=== PATIENT | male | born 1930 | race Caucasian/White ===

== ENCOUNTER → 2017-01-15 | Outpatient (CLI) | payer MEDICARE, OTHER ==
[~2017-01-15] MED LIST: ALAVERT10 M1 PO; AMLODIPINE10 MG; ASPIRIN81 M1; BENICAR40 MG; CHERATUSSIN DA480 ML; CLARITIN10 MG PO; COREG12.5 MG PO; FLONASE ALLERG9.9 ML NAS; HORIZANT300 M1 PO; HYDROCHLOROTHIA25 MG; HYDROCODONE BIT1 T11 PO; KEFLEX500 MG PO; KLORVESS,K40 MEQ/30 PO; LASIX80 MG PO; LEXAPRO20 MG PO; LISINOPRIL40 MG; LYRICA75 M1 PO; PLAVIX75 MG; RESTASIS0.05% OP; RESTORIL15 MG PO; ROBITUSSIN AC 110 ML PO; SIMVASTATIN40 MG; ULTRAM50 MG PO; VITAMIN D32000 I1 PO; ZOCOR20 MG PO; ZOLPIDEM TARTRAT5 MG; ZYLOPRIM100 MG PO
[2017-01-15 09:47] LABS: BASO % 0.3 % (0.0-1.0); EOS # 0.1 10*3/uL (0.0-0.4); EOS % 1.4 % (1.0-4.0); HEMATOCRIT 30.6 % (42.0-52.0); HEMOGLOBIN 9.6 g/dl (14.0-18.0); IG # 0.1 10*3/uL (0.0-0.1); LYMPH # 2.5 10*3/uL (1.3-4.4); LYMPH % 38.3 % (27.0-41.0); MEAN CELL VOLUME 98.4 fl (80.0-94.0); MEAN CORPUSCULAR HGB 30.9 pg (27.0-31.0); MEAN CORPUSCULAR HGB CONC 31.4 g/dl (33.0-37.0); MEAN PLATELET VOLUME 10.9 fl (9.6-12.3); MONO # 0.4 10*3/uL (0.1-1.0); MONO % 5.5 % (3.0-9.0); NEUT # 3.4 10*3/uL (2.3-7.9); NEUT % 53.6 % (47.0-73.0); PLATELET COUNT AUTOMATED 63 10*3/uL (130-400); RED BLOOD COUNT 3.11 10*6/uL (4.50-5.90); RED CELL DISTRI WIDTH 19.6 % (0-14.5); WHITE BLOOD COUNT 6.4 10*3/uL (4.8-10.8)
[2017-01-15 10:20] LABS: ALBUMIN 3.8 gm/dl (3.1-4.5); BILIRUBIN, TOTAL 0.7 mg/dl (0.2-1.0); POTASSIUM 4.7 mmol/L (3.5-5.1); TOTAL PROTEIN 6.2 gm/dL (6.4-8.2)
[2017-01-15 10:26] LABS: VITAMIN D, 25-HYDROXY 33.9 ng/mL (30-100)
[2017-01-15 10:27] LABS: FOLIC ACID 22.65 ng/mL (>5.38); THYROID STIM HORMONE (HS) 2.34 uIU/ml (0.358-4.75)
== END | disposition home or self-care (01) ==
LOC: LAB 09:27
PROVIDERS: Internal Medicine
DX: G57.93 Unspecified mononeuropathy of bilateral lower limbs (principal); E55.9 Vitamin D deficiency, unspecified; E78.2 Mixed hyperlipidemia

== ENCOUNTER → 2017-05-24 | Outpatient (CLI) | payer MEDICARE, OTHER ==
[2017-05-24 11:55] LABS: BASO % 0.1 % (0.0-1.0); EOS # 0.1 10*3/uL (0.0-0.4); EOS % 1.1 % (1.0-4.0); HEMATOCRIT 30.8 % (42.0-52.0); HEMOGLOBIN 10.3 g/dl (14.0-18.0); IG # 0.1 10*3/uL (0.0-0.1); LYMPH # 3.4 10*3/uL (1.3-4.4); LYMPH % 40.7 % (27.0-41.0); MEAN CELL VOLUME 97.8 fl (80.0-94.0); MEAN CORPUSCULAR HGB 32.7 pg (27.0-31.0); MEAN CORPUSCULAR HGB CONC 33.4 g/dl (33.0-37.0); MEAN PLATELET VOLUME 10.8 fl (9.6-12.3); MONO # 0.4 10*3/uL (0.1-1.0); MONO % 5.2 % (3.0-9.0); NEUT # 4.3 10*3/uL (2.3-7.9); NEUT % 52.1 % (47.0-73.0); PLATELET COUNT AUTOMATED 80 10*3/uL (130-400); RED BLOOD COUNT 3.15 10*6/uL (4.50-5.90); RED CELL DISTRI WIDTH 19.2 % (0-14.5); WHITE BLOOD COUNT 8.3 10*3/uL (4.8-10.8)
== END | disposition home or self-care (01) ==
LOC: LAB 11:33
PROVIDERS: Internal Medicine Hematology & Oncology
DX: C91.10 Chronic lymphocytic leukemia of B-cell type not having achieved remission (principal); R97.20 Elevated prostate specific antigen [PSA]

== ENCOUNTER → 2017-06-04 | Outpatient (CLI) | payer MEDICARE, OTHER ==
[2017-06-06 16:09] LABS: IMMUNOFIXATION RESULT, SERUM Comment: (.)
== END | disposition home or self-care (01) ==
LOC: LAB 13:07
PROVIDERS: Psychiatry & Neurology Neurology
DX: G60.9 Hereditary and idiopathic neuropathy, unspecified (principal); I10 Essential (primary) hypertension

== ENCOUNTER → 2017-08-08 | Outpatient (CLI) | payer MEDICARE, OTHER ==
[2017-08-08 09:57] LABS: BASO % 0.2 % (0.0-1.0); EOS # 0.1 10*3/uL (0.0-0.4); EOS % 0.9 % (1.0-4.0); HEMATOCRIT 30.9 % (42.0-52.0); LYMPH # 3.6 10*3/uL (1.3-4.4); LYMPH % 41.5 % (27.0-41.0); MEAN CORPUSCULAR HGB 32.4 pg (27.0-31.0); MEAN CORPUSCULAR HGB CONC 32.4 g/dl (33.0-37.0); MEAN PLATELET VOLUME 9.6 fl (9.6-12.3); MONO # 0.6 10*3/uL (0.1-1.0); MONO % 6.7 % (3.0-9.0); NEUT # 4.3 10*3/uL (2.3-7.9); NEUT % 49.5 % (47.0-73.0); NUCLEATED RED BLOOD CELL 0.2 % (0.0-0.0); PLATELET COUNT AUTOMATED 77 10*3/uL (130-400); RED BLOOD COUNT 3.09 10*6/uL (4.50-5.90); RED CELL DISTRI WIDTH 19.7 % (0-14.5); WHITE BLOOD COUNT 8.7 10*3/uL (4.8-10.8)
[2017-08-08 10:12] LABS: ACT PARTIAL THROMBO TIME 25.1 SECONDS (20.8-31.5); INTERNATIONAL NORM RATIO 1.1 (2.0-3.5)
[2017-08-08 10:17] LABS: ALBUMIN 4.1 gm/dl (3.1-4.5); CREATININE 1.62 mg/dL (0.70-1.30); POTASSIUM 4.7 mmol/L (3.5-5.1); TOTAL PROTEIN 6.9 gm/dL (6.4-8.2)
== END | disposition home or self-care (01) ==
LOC: LAB 09:31
PROVIDERS: Surgery Vascular Surgery
DX: Z51.81 Encounter for therapeutic drug level monitoring (principal); I73.9 Peripheral vascular disease, unspecified

== ENCOUNTER → 2017-08-17 | Outpatient (CLI) | payer MEDICARE, OTHER | END | disposition home or self-care (01) | LOC: RAD 11:29 | DX: Z01.818 Encounter for other preprocedural examination (principal); I51.7 Cardiomegaly; J44.9 Chronic obstructive pulmonary disease, unspecified; I73.9 Peripheral vascular disease, unspecified; Z95.2 Presence of prosthetic heart valve ==

== ENCOUNTER 2017-09-14 18:40 | Inpatient (IN) | payer MEDICARE, OTHER ==
[~2017-09-14] VITALS: Ht 175.2 cm; Wt 88.2 kg
[~2017-09-14 18:40] MED LIST changes: -ASPIRIN81 M1; +ASPIRIN81 M1 PO; +PLAVIX75 M1 PO; -PLAVIX75 MG
[2017-09-14 18:46] VITALS: BP 169/38
[2017-09-14 19:36] LABS: BASO % 0.1 % (0.0-1.0); EOS # 0.1 10*3/uL (0.0-0.4); EOS % 0.6 % (1.0-4.0); HEMATOCRIT 28.8 % (42.0-52.0); HEMOGLOBIN 9.1 g/dl (14.0-18.0); LYMPH # 3.6 10*3/uL (1.3-4.4); LYMPH % 35.5 % (27.0-41.0); MEAN CELL VOLUME 99.7 fl (80.0-94.0); MEAN CORPUSCULAR HGB 31.5 pg (27.0-31.0); MEAN CORPUSCULAR HGB CONC 31.6 g/dl (33.0-37.0); MEAN PLATELET VOLUME 10.5 fl (9.6-12.3); MONO # 0.4 10*3/uL (0.1-1.0); MONO % 4.2 % (3.0-9.0); NEUT % 59.2 % (47.0-73.0); PLATELET COUNT AUTOMATED 75 10*3/uL (130-400); RED BLOOD COUNT 2.89 10*6/uL (4.50-5.90); RED CELL DISTRI WIDTH 21.6 % (0-14.5)
[2017-09-14 19:52] LABS: ALBUMIN 3.4 gm/dl (3.1-4.5); CREATININE 1.97 mg/dL (0.70-1.30); POTASSIUM 5.3 mmol/L (3.5-5.1); TOTAL PROTEIN 6.5 gm/dL (6.4-8.2)
[2017-09-14 20:00] VITALS: BP 125/55
[2017-09-14 22:21] VITALS: BP 127/61
[2017-09-14] MEDS ORDERED: VITAMIN D31000 UNI1 PO (22:57)
[2017-09-14] MEDS ORDERED: DIOVAN320 MG PO (22:59)
[2017-09-14] MEDS ORDERED: MULTIVITAMINS1 EAC5 PO (22:59)
[2017-09-14] MEDS ORDERED: VITAMIN C500 M1 PO (23:02)
[2017-09-14] MEDS ORDERED: PERCOCET 5-3251 EACH PO (23:03)
[2017-09-14] MEDS ORDERED: IRON325 M1 PO (23:06)
[2017-09-14] MEDS ORDERED: MIRALAX119 GM PO (23:07)
[2017-09-14] MEDS ORDERED: K-TAB20 MEQ PO (23:10)
[2017-09-14] MEDS ORDERED: TYLENOL EXTRA500 MG PO (23:12)
[2017-09-15 06:29] LABS: BASO % 0.2 % (0.0-1.0); EOS # 0.1 10*3/uL (0.0-0.4); EOS % 1.1 % (1.0-4.0); HEMATOCRIT 24.9 % (42.0-52.0); HEMOGLOBIN 7.9 g/dl (14.0-18.0); LYMPH # 2.2 10*3/uL (1.3-4.4); LYMPH % 34.9 % (27.0-41.0); MEAN CORPUSCULAR HGB 31.7 pg (27.0-31.0); MEAN CORPUSCULAR HGB CONC 31.7 g/dl (33.0-37.0); MEAN PLATELET VOLUME 11.5 fl (9.6-12.3); MONO # 0.4 10*3/uL (0.1-1.0); NEUT # 3.6 10*3/uL (2.3-7.9); NEUT % 56.9 % (47.0-73.0); PLATELET COUNT AUTOMATED 64 10*3/uL (130-400); RED BLOOD COUNT 2.49 10*6/uL (4.50-5.90); RED CELL DISTRI WIDTH 21.7 % (0-14.5); WHITE BLOOD COUNT 6.4 10*3/uL (4.8-10.8)
[2017-09-15 06:40] LABS: ALBUMIN 2.9 gm/dl (3.1-4.5); CREATININE 1.42 mg/dL (0.70-1.30); FREE T4 1.2 ng/dl (0.76-1.46); TOTAL PROTEIN 5.6 gm/dL (6.4-8.2)
[2017-09-15 06:45] LABS: THYROID STIM HORMONE (HS) 1.7 uIU/ml (0.358-4.75)
[2017-09-15 06:47] LABS: ACT PARTIAL THROMBO TIME 27.5 SECONDS (20.8-31.5); INTERNATIONAL NORM RATIO 1.1 (2.0-3.5)
[2017-09-15 06:55] LABS: POTASSIUM 4.3 mmol/L (3.5-5.1)
[2017-09-15 07:39] LABS: VITAMIN D, 25-HYDROXY 28.5 ng/mL (30-100)
[2017-09-15 08:00] VITALS: BP 104/65
[2017-09-15 12:00] VITALS: BP 110/65
[2017-09-15 16:00] VITALS: BP 118/50
[2017-09-15 20:00] VITALS: BP 110/56
[2017-09-16] VITALS: BP 105/52
[2017-09-16 06:32] LABS: BASO % 0.2 % (0.0-1.0); CREATININE 1.37 mg/dL (0.70-1.30); EOS # 0.1 10*3/uL (0.0-0.4); HEMATOCRIT 27.6 % (42.0-52.0); HEMOGLOBIN 8.6 g/dl (14.0-18.0); LYMPH % 36.8 % (27.0-41.0); MEAN CELL VOLUME 100.4 fl (80.0-94.0); MEAN CORPUSCULAR HGB 31.3 pg (27.0-31.0); MEAN CORPUSCULAR HGB CONC 31.2 g/dl (33.0-37.0); MEAN PLATELET VOLUME 12.5 fl (9.6-12.3); MONO # 0.3 10*3/uL (0.1-1.0); MONO % 4.1 % (3.0-9.0); NEUT # 4.6 10*3/uL (2.3-7.9); NEUT % 57.4 % (47.0-73.0); PLATELET COUNT AUTOMATED 78 10*3/uL (130-400); POTASSIUM 4.3 mmol/L (3.5-5.1); RED BLOOD COUNT 2.75 10*6/uL (4.50-5.90); RED CELL DISTRI WIDTH 21.5 % (0-14.5)
[2017-09-16 08:00] VITALS: BP 137/53
[2017-09-16 12:00] VITALS: BP 113/47
[2017-09-16 16:00] VITALS: BP 112/61
[2017-09-17] VITALS: BP 109/49
[2017-09-17 06:18] LABS: BASO % 0.2 % (0.0-1.0); EOS # 0.1 10*3/uL (0.0-0.4); EOS % 1.7 % (1.0-4.0); HEMATOCRIT 24.8 % (42.0-52.0); HEMOGLOBIN 7.9 g/dl (14.0-18.0); LYMPH # 2.1 10*3/uL (1.3-4.4); MEAN CORPUSCULAR HGB 31.2 pg (27.0-31.0); MEAN CORPUSCULAR HGB CONC 31.9 g/dl (33.0-37.0); MEAN PLATELET VOLUME 10.9 fl (9.6-12.3); MONO # 0.4 10*3/uL (0.1-1.0); MONO % 6.2 % (3.0-9.0); NEUT # 3.3 10*3/uL (2.3-7.9); NEUT % 55.9 % (47.0-73.0); PLATELET COUNT AUTOMATED 68 10*3/uL (130-400); RED BLOOD COUNT 2.53 10*6/uL (4.50-5.90); RED CELL DISTRI WIDTH 21.2 % (0-14.5); WHITE BLOOD COUNT 5.9 10*3/uL (4.8-10.8)
[2017-09-17 06:47] LABS: BUN 22 mg/dl (7-24); CHLORIDE 114 mmol/L (98-107); CREATININE 1.18 mg/dL (0.70-1.30); PHOSPHOROUS 2.2 mg/dL (2.5-4.9); POTASSIUM 3.9 mmol/L (3.5-5.1); SODIUM 143 mmol/L (136-145)
[2017-09-17 08:00] VITALS: BP 127/48
[2017-09-17 12:00] VITALS: BP 112/51
[2017-09-17] MEDS ORDERED: SEPTDS PO (12:46)
[2017-09-17] MEDS ORDERED: PERCOCET 5-3251 EACH PO (12:46)
== END 2017-09-17 14:46 | disposition other institution (70) | DRG 862 ==
LOC: ED 18:40 → 4E 21:36 → EDHOLD 21:36 → 4E 21:49
PROVIDERS: Hospitalist; Internal Medicine Nephrology; Nurse Practitioner Family; Student in an Organized Health Care Education/Training Program; ADMIT Internal Medicine
DX: T81.4XXA Infection following a procedure, initial encounter (principal); N17.0 Acute kidney failure with tubular necrosis; E44.0 Moderate protein-calorie malnutrition; D69.6 Thrombocytopenia, unspecified; C95.90 Leukemia, unspecified not having achieved remission; L03.115 Cellulitis of right lower limb; E11.65 Type 2 diabetes mellitus with hyperglycemia; B95.8 Unspecified staphylococcus as the cause of diseases classified elsewhere; L76.34 Postprocedural seroma of skin and subcutaneous tissue following other procedure; D53.9 Nutritional anemia, unspecified; E87.5 Hyperkalemia; B96.4 Proteus (mirabilis) (morganii) as the cause of diseases classified elsewhere; E11.69 Type 2 diabetes mellitus with other specified complication; E78.5 Hyperlipidemia, unspecified; E66.9 Obesity, unspecified; E55.9 Vitamin D deficiency, unspecified; I10 Essential (primary) hypertension; Z96.641 Presence of right artificial hip joint; E87.8 Other disorders of electrolyte and fluid balance, not elsewhere classified; Y83.8 Other surgical procedures as the cause of abnormal reaction of the patient, or of later complication, without mention of misadventure at the time of the procedure; Z95.2 Presence of prosthetic heart valve; Z68.28 Body mass index [BMI] 28.0-28.9, adult; Z95.1 Presence of aortocoronary bypass graft; Y92.89 Other specified places as the place of occurrence of the external cause; Z95.0 Presence of cardiac pacemaker; Z85.46 Personal history of malignant neoplasm of prostate; Z79.02 Long term (current) use of antithrombotics/antiplatelets; Z79.51 Long term (current) use of inhaled steroids; Z79.82 Long term (current) use of aspirin; Z79.899 Other long term (current) drug therapy; Z82.49 Family history of ischemic heart disease and other diseases of the circulatory system

== ENCOUNTER 2017-09-21 22:37 | Emergency (ER) | payer MEDICARE, OTHER ==
[~2017-09-21] VITALS: Ht 182.8 cm; Wt 90.7 kg
[~2017-09-21 22:37] MED LIST changes: +DIOVAN320 MG PO; +IRON325 M1 PO; +K-TAB20 MEQ PO; +MIRALAX119 GM PO; +MULTIVITAMINS1 EAC5 PO; +PERCOCET 5-3251 EACH PO; +SEPTDS PO; +TYLENOL EXTRA500 MG PO; +VITAMIN C500 M1 PO; +VITAMIN D31000 UNI1 PO
[2017-09-21 23:56] LABS: ACT PARTIAL THROMBO TIME 23.5 SECONDS (20.8-31.5); INTERNATIONAL NORM RATIO 1.1 (2.0-3.5)
[2017-09-22] LABS: ALBUMIN 3.4 gm/dl (3.1-4.5); ALKALINE PHOSPHATASE 96 U/L (45-117); BUN 31 mg/dl (7-24); CHLORIDE 112 mmol/L (98-107); CREATININE 1.77 mg/dL (0.70-1.30); LIPASE 223 U/L (73-393); POTASSIUM 5.4 mmol/L (3.5-5.1); SGOT/AST 16 IU/L (3-35); SGPT/ALT 22 U/L (12-78); SODIUM 140 mmol/L (136-145)
[2017-09-22 00:01] LABS: BASO % 0.2 % (0.0-1.0); EOS # 0.1 10*3/uL (0.0-0.4); EOS % 1.1 % (1.0-4.0); HEMATOCRIT 27.3 % (42.0-52.0); HEMOGLOBIN 8.8 g/dl (14.0-18.0); LYMPH # 4.4 10*3/uL (1.3-4.4); LYMPH % 40.6 % (27.0-41.0); MEAN CELL VOLUME 98.6 fl (80.0-94.0); MEAN CORPUSCULAR HGB 31.8 pg (27.0-31.0); MEAN CORPUSCULAR HGB CONC 32.2 g/dl (33.0-37.0); MEAN PLATELET VOLUME 11.7 fl (9.6-12.3); MONO # 0.4 10*3/uL (0.1-1.0); NEUT # 5.7 10*3/uL (2.3-7.9); NEUT % 52.9 % (47.0-73.0); PLATELET COUNT AUTOMATED 120 10*3/uL (130-400); RED BLOOD COUNT 2.77 10*6/uL (4.50-5.90); RED CELL DISTRI WIDTH 22.3 % (0-14.5); WHITE BLOOD COUNT 10.7 10*3/uL (4.8-10.8)
[2017-09-22 00:03] LABS: TROPONIN I < 0.015 ng/ml (<0.045)
[2017-09-22 00:23] LABS: BILIRUBIN NEGATIVE (NEGATIVE); BLOOD NEGATIVE (NEGATIVE); CLARITY CLEAR (CLEAR); COLOR YELLOW (YELLOW); GLUCOSE NEGATIVE (NEGATIVE); KETONE NEGATIVE (NEGATIVE); LEUKO ESTERASE NEGATIVE (NEGATIVE); NITRITE NEGATIVE (NEGATIVE); SPECIFIC GRAVITY 1.025 (1.005-1.030); UROBILINOGEN 0.2 E.U./dl (0.2-1.0)
[2017-09-22 00:49] LABS: URIC ACID CRYSTALS 2+
[2017-09-22 00:50] LABS: WBC 0-2 wbc/hpf (0-5)
[2017-09-22 12:04] VITALS: BP 144/56
== END 2017-09-22 12:30 | disposition home or self-care (01) ==
LOC: ED 22:37
PROVIDERS: Emergency Medicine Emergency Medical Services
DX: L03.115 Cellulitis of right lower limb (principal); R60.0 Localized edema; E78.5 Hyperlipidemia, unspecified; E11.65 Type 2 diabetes mellitus with hyperglycemia; I10 Essential (primary) hypertension; Z96.641 Presence of right artificial hip joint; Z95.1 Presence of aortocoronary bypass graft; Z98.890 Other specified postprocedural states; Z79.82 Long term (current) use of aspirin; Z79.899 Other long term (current) drug therapy; Z95.0 Presence of cardiac pacemaker

== ENCOUNTER → 2017-11-19 | Outpatient (CLI) | payer MEDICARE, OTHER ==
[2017-11-19 10:36] LABS: BASO % 0.3 % (0.0-1.0); EOS # 0.1 10*3/uL (0.0-0.4); EOS % 0.8 % (1.0-4.0); HEMATOCRIT 30.3 % (42.0-52.0); HEMOGLOBIN 9.8 g/dl (14.0-18.0); LYMPH # 2.3 10*3/uL (1.3-4.4); LYMPH % 37.6 % (27.0-41.0); MEAN CELL VOLUME 98.7 fl (80.0-94.0); MEAN CORPUSCULAR HGB 31.9 pg (27.0-31.0); MEAN CORPUSCULAR HGB CONC 32.3 g/dl (33.0-37.0); MEAN PLATELET VOLUME 10.4 fl (9.6-12.3); MONO # 0.3 10*3/uL (0.1-1.0); MONO % 5.2 % (3.0-9.0); NEUT # 3.4 10*3/uL (2.3-7.9); PLATELET COUNT AUTOMATED 75 10*3/uL (130-400); RED BLOOD COUNT 3.07 10*6/uL (4.50-5.90); RED CELL DISTRI WIDTH 19.6 % (0-14.5); WHITE BLOOD COUNT 6.1 10*3/uL (4.8-10.8)
== END | disposition home or self-care (01) ==
LOC: LAB 10:18
PROVIDERS: Internal Medicine Hematology & Oncology
DX: C91.10 Chronic lymphocytic leukemia of B-cell type not having achieved remission (principal); R97.20 Elevated prostate specific antigen [PSA]

== ENCOUNTER → 2017-12-05 | Outpatient (CLI) | payer MEDICARE, OTHER ==
[2017-12-05 11:13] LABS: CREATININE 1.45 mg/dL (0.70-1.30); POTASSIUM 4.7 mmol/L (3.5-5.1)
== END | disposition home or self-care (01) ==
LOC: LAB 10:37
PROVIDERS: Urology
DX: C61 Malignant neoplasm of prostate (principal)

== ENCOUNTER 2018-01-31 21:45 | Inpatient (IN) | payer MEDICARE, OTHER ==
[~2018-01-31] VITALS: Ht 175.3 cm; Wt 77.1 kg
--- NOTE | ~2018-01-31 | CON ---
[place], [place] REPORT OF CONSULTATION NAME: LALITA MARI UNIT #: [id number] ROOM: [facility] DOCTOR: BARBARA FLORES,SOUMYA BIRTHDATE: [birth year] DOS: 02/02/2018 REASON FOR CONSULTATION: Chest pain. CLINICAL HISTORY: The patient is an 87-year-old gentleman with history of coronary artery disease, valvular heart disease, chronic kidney disease, peripheral vascular disease, pacemaker and hypertension who presented to the Emergency Room with intermittent chest pain for the past couple of weeks. He described this pain as midsternal pain, easily comes with exertion and relieved with rest. This pain is in the midsternal area. No radiation. The patient has associated shortness of breath and nausea, but no diaphoresis. The pain lasts for a few minutes and relieves with the rest. He had history of previous bypass surgery, aortic valve replacement, pacemaker insertion, hypertension, chronic lymphocytic leukemia as well as chronic anemia. He was admitted to the hospital and the Cardiology consulted for his intermittent chest pains. At the time of my examination, the patient denied any chest pain or shortness of breath. No PND, no orthopnea. No nausea, vomiting or diarrhea. No headaches, no dizziness. No fever or chills. No genitourinary symptoms. No musculoskeletal symptoms. He is anticipating upper endoscopy tomorrow. REVIEW OF SYSTEMS: Ten systems negative except as mentioned above. PAST MEDICAL HISTORY: 1. Valvular heart disease, status post bioprosthetic aortic valve replacement around 2007, details unknown. 2. Coronary artery disease, status post single vessel bypass around 2007 along with bypass surgery. 3. Pacemaker insertion around 2010. 4. Peripheral vascular disease, status post right leg surgery in 2016, details unknown. 5. Chronic lymphocytic leukemia. 6. Hypertension. 7. Chronic kidney disease. 8. Diabetes type 2. 9. History of prostate cancer. PAST SURGICAL HISTORY: 1. History of bypass surgery. 2. History of aortic valve replacement. 3. History of right leg bypass. 4. History of hip replacement. SOCIAL HISTORY: The patient does not smoke or drink. FAMILY HISTORY: Father . Mother . ALLERGIES: No known drug allergies. HOME MEDICATIONS: Reviewed. [place], [place] REPORT OF CONSULTATION NAME: KAMALJITLALITA Armenta UNIT #: [id number] ROOM: [facility] DOCTOR: BARBARA FLORES,SOUMYA BIRTHDATE: [birth year] PHYSICAL EXAMINATION: VITAL SIGNS: Blood pressure 110/82, pulse 74, respiration 18, weight 77 kilos and BMI 25.1. GENERAL: Alert, comfortable, in no acute distress. HEENT: Pupils are round and equal. No jaundice. NECK: Supple, no distended neck veins, no carotid bruit. CHEST: Symmetrical, nontender. LUNGS: Few scattered rhonchi, but good air entry bilaterally. HEART: Regular rate and rhythm, no S3, grade 1/6 systolic murmur. No palpable thrills. ABDOMEN: Benign, nontender. Bowel sounds normal. EXTREMITIES: Showed no edema. Distal pulses are palpable. SKIN: Warm and dry. No cyanosis, no clubbing. NEUROLOGIC: The patient is alert, oriented. No focal neurologic deficit. RECTAL: Deferred. REVIEW OF THE DIAGNOSTIC TESTS: EKG, labs and imaging studies reviewed. EKG shows a normal sinus rhythm with inferolateral ST-T changes. CK-MB, troponins are negative. Magnesium 2.4, potassium 4.5, BUN 69 and creatinine 1.34. Hemoglobin 9.0, platelets 68,000. Echo from October 2016 showed an EF 55-60%, stage II diastolic dysfunction and mean aortic valve gradient 7 mmHg. Stress test on August 2016 noted. IMPRESSIONS: 1. Intermittent chest pains, myocardial infarction ruled out. 2. Severe anemia, status post transfusion of packed red blood cells in the past. The patient is anticipating the endoscopy tomorrow. 3. Coronary artery disease, status post single vessel bypass about 10 years ago. 4. Status post bioprosthetic aortic valve replacement about 10 years ago. 5. Status post pacemaker insertion around 2010. 6. Peripheral vascular disease, status post right leg bypass in 2017. 7. Chronic kidney disease. 8. Hypertension. 9. Diabetes type 2. 10. Thrombocytopenia. RECOMMENDATIONS: Continue with current cardiac medications including beta desiree, ARBs and statins. His aspirin and Plavix are on hold. Based on his upper endoscopy, I will consider Lexiscan stress test prior to discharge. Keep his hemoglobin greater than 8.5. His chest pain ____ appears to be due to his severe anemia and currently asymptomatic. The above treatment and plan discussed with the patient and his who are at bedside and all their questions answered. [place], [place] REPORT OF CONSULTATION NAME: LALITA MARI UNIT #: [id number] ROOM: [facility] DOCTOR: SOUMYA JIMENEZ MD BIRTHDATE: [birth year] SOUMYA JIMENEZ MD CM:CONSTR:REPORT OF CONSULTATION 2243 02/03/18 0242 interface
--- NOTE | ~2018-01-31 | O ---
[place], [place] OPERATIVE NOTE NAME: LALITA MARI UNIT #: [id number] ROOM: [facility] DOCTOR: MANDY CABEZAS MD BIRTHDATE: [birth year] DOS: 02/03/2018 GASTROENDOSCOPIC REPORT HISTORY OF PRESENT ILLNESS: This gentleman has presented with profound anemia, hemoglobin of 6, hematocrit 20, status post multi transfusion, thrombocytopenia. In addition, on aspirin and Plavix for black tarry stool, status post multi packed cell transfusion, status post platelet transfusion. PROCEDURE: Today's procedure part of investigation is panendoscopy. PREMEDICATION: Propofol. SCOPE: Olympus forward-viewing gastroscope Q10 video. REPORT: After putting the patient in left lateral position and application of lubricant to the scope, the scope was introduced. Thereafter, under direct visualization, advanced through the length of esophagus without difficulty. Gastric pouch was entered. Multi antral erosions were identified. Duodenal bulb, second and third part free of ulcers. Photographic series obtained. Biopsy from margin of one of the erosions was obtained for documentation and H. pylori. The patient extubated and tolerated the procedure well. IMPRESSION: Multi antral erosions, gastritis. This patient has been on aspirin. The culprit most likely is the aspirin for induction of gastric erosions and gastritis and black tarry stool. PLAN AND DISCUSSION: We are going to withhold aspirin. We are going to proceed with Plavix from tomorrow and the patient with aortic valvular disease and prosthesis as well as peripheral vascular disease in need of anticoagulation. On the other hand, GI bleed and chronic lymphocytic leukemia and coronary artery disease, all has been recognized. We are going to treat the patient with Protonix and we are going to also, while he is in hospital, keeping him on Carafate 1 gram before meals and at bedtime while in hospital and follow up on H and H and supportive management. [place], [place] OPERATIVE NOTE NAME: LALITA MARI UNIT #: [id number] ROOM: [facility] DOCTOR: MANDY CABEZAS MD BIRTHDATE: [birth year] MANDY CABEZAS MD CM:OPRECORD:OPERATIVE NOTE 49 32 MANDY CABEZAS MD 02/03/182031 interface
--- NOTE | ~2018-01-31 | CON ---
[place], [place] REPORT OF CONSULTATION NAME: LALITA MARI UNIT #: [id number] ROOM: [facility] DOCTOR: NATALI CABEZAS MDAUSTINJEISON BIRTHDATE: [birth year] DOS: 02/03/2018 GASTROENDOSCOPIC REPORT HISTORY OF PRESENT ILLNESS: The patient has been presented and placed in ICU for black tarry stool. This gentleman is 87-year-old patient. He has been taken care of over the past 3 days with concerns about profound anemia with hemoglobin of 6 and hematocrit of 19, and black tarry stool with thrombocytopenia and I have been asked for assessment of the patient's source of GI bleed. His glucose was 250. BUN and creatinine 87 and 1.8. GFR of 42. INR 1.0. CBC differential was addressed. Troponin was within normal limits. Arterial blood gases, pH 7.37 with pO2 of 95 and pCO2 of 29. H and H confirmed to be 6 and 20, multiple transfusions undertaken. The patient is stabilized. The patient has been on Plavix and aspirin. His recent platelets were 57, one unit of platelets has been transfused. PAST MEDICAL HISTORY: Otherwise renal failure, cellulitis of knee and right leg, diabetes mellitus, cardiac dysrhythmia, status post pacemaker, prostate CA, and thrombocytopenia. PAST SURGICAL HISTORY: Right hip prosthesis, aortic valve, and cardiac catheterization. SOCIAL HISTORY: Nonsmoker, nonalcohol consumer. FAMILY HISTORY: Noncontributory. ALLERGIES: Allergies to no known medication. REVIEW OF SYSTEMS: HEENT: Denies double vision, blurred vision. RESPIRATORY: Denies acute shortness of breath. CARDIOVASCULAR: Denies acute chest pain. DIGESTIVE SYSTEM: Black tarry stool and profound anemia. PHYSICAL EXAMINATION: VITAL SIGNS: Stable. HEENT: Within normal limit. NECK: Supple. No thyromegaly. CHEST: Symmetric anatomy, equal expansion. No wheeze, no rhonchi. HEART: Normal sinus rhythm. No gallop, no murmur. ABDOMEN: Soft. No hepato-organomegaly. Bowel sounds present. No pulsatile mass. EXTREMITIES: Cellulitis was noticed. Wrapped in pressure boots. NEUROLOGIC: Alert, oriented to time, place, person. Sensory and motor intact. Cranial nerves 2-12 intact. IMPRESSION: Profound anemia, gastrointestinal bleed, thrombocytopenia, black tarry stool, coronary artery disease, chronic lymphocytic leukemia, diabetes mellitus, prostate carcinoma, peripheral vascular disease, valvular heart [place], [place] REPORT OF CONSULTATION NAME: LALITA MARI UNIT #: [id number] ROOM: [facility] DOCTOR: JOCELYNN FLORES,MANDY BIRTHDATE: [birth year] disease, aortic prosthetic valve, and lower extremity fem-pop bypass on the right side. PLAN AND DISCUSSION: The patient has been on aspirin and Plavix. Platelets have been transfused. EGD today. OTHER ADJUNCTIVE DIAGNOSES: As outlined in paragraph of past medical and surgical history. MANDY CABEZAS MD CM:CONSTR:REPORT OF CONSULTATION 1736 02/04/18 0614 interface
[~2018-01-31 21:45] MED LIST changes: -AMLODIPINE10 MG; -COREG12.5 MG PO; +COREG6.25 MG PO; +DIOVAN160 M2 PO; -DIOVAN320 MG PO; +LASIX40 MG PO; -LASIX80 MG PO; +NORVASC2.5 MG PO; -VITAMIN D31000 UNI1 PO; +VITAMIN D32000 UNI1 PO
[2018-01-31 21:51] VITALS: BP 167/51
[2018-01-31 22:12] LABS: HEMATOCRIT 19.1 % (42.0-52.0); HEMOGLOBIN 6.4 g/dl (14.0-18.0); MEAN CELL VOLUME 102.7 fl (80.0-94.0); MEAN CORPUSCULAR HGB 34.4 pg (27.0-31.0); MEAN CORPUSCULAR HGB CONC 33.5 g/dl (33.0-37.0); MEAN PLATELET VOLUME 10.3 fl (9.6-12.3); NUCLEATED RED BLOOD CELL 0.2 10*3/uL (0.0-0.0); NUCLEATED RED BLOOD CELL 2.1 % (0.0-0.0); PLATELET COUNT AUTOMATED 96 10*3/uL (130-400); RED BLOOD COUNT 1.86 10*6/uL (4.50-5.90); RED CELL DISTRI WIDTH 22.2 % (0-14.5); WHITE BLOOD COUNT 10.5 10*3/uL (4.8-10.8)
[2018-01-31 22:22] VITALS: BP 136/33
[2018-01-31 22:29] LABS: ALBUMIN 3.8 gm/dl (3.1-4.5); ALKALINE PHOSPHATASE 70 U/L (45-117); BUN 87 mg/dl (7-24); CHLORIDE 112 mmol/L (98-107); CREATININE 1.85 mg/dL (0.70-1.30); POTASSIUM 4.8 mmol/L (3.5-5.1); SGOT/AST 20 IU/L (3-35); SGPT/ALT 24 U/L (12-78); SODIUM 141 mmol/L (136-145); TOTAL PROTEIN 5.8 gm/dL (6.4-8.2)
[2018-01-31 22:31] LABS: TROPONIN I < 0.015 ng/ml (<0.045)
[2018-01-31 22:41] LABS: PLATELET SUFFICIENCY LOW (NORMAL); TOTAL CELLS COUNTED 100 #CELLS
[2018-01-31 22:42] LABS: OVALOCYTES FEW; POLYCHROMASIA SLIGHT
[2018-01-31 23:37] VITALS: BP 137/48
[2018-02-01] VITALS (12 sets, daily range): BP systolic 101–171; BP diastolic 32–55
[2018-02-01 04:16] LABS: ABG HCO3 16.7 mmol/l (22-26); ABG O2 SATURATION 98.3 % (95-97); ARTERIAL BLOOD GAS PH 7.376 (7.35-7.45); ARTERIAL BLOOD GAS PO2 95.9 mmHg (80-90)
[2018-02-01 04:17] LABS: ABG BASE EXCESS -7.4 mmol/L (-2.0-2.0)
[2018-02-01 04:26] LABS: HEMATOCRIT 20.6 % (42.0-52.0); HEMATOCRIT 21.6 % (42.0-52.0); HEMOGLOBIN 6.8 g/dl (14.0-18.0); HEMOGLOBIN 6.9 g/dl (14.0-18.0); MEAN CORPUSCULAR HGB 31.9 pg (27.0-31.0); MEAN CORPUSCULAR HGB CONC 31.9 g/dl (33.0-37.0); MEAN PLATELET VOLUME 10.8 fl (9.6-12.3); NUCLEATED RED BLOOD CELL 0.2 10*3/uL (0.0-0.0); NUCLEATED RED BLOOD CELL 2.4 % (0.0-0.0); PLATELET COUNT AUTOMATED 83 10*3/uL (130-400); RED BLOOD COUNT 2.16 10*6/uL (4.50-5.90); RED CELL DISTRI WIDTH 21.7 % (0-14.5); WHITE BLOOD COUNT 7.1 10*3/uL (4.8-10.8)
[2018-02-01 04:34] LABS: ACT PARTIAL THROMBO TIME 19.5 SECONDS (20.8-31.5); INTERNATIONAL NORM RATIO 1.1 (2.0-3.5)
[2018-02-01 04:43] LABS: ALBUMIN 3.7 gm/dl (3.1-4.5); CREATININE 1.74 mg/dL (0.70-1.30); PHOSPHOROUS 4.4 mg/dL (2.5-4.9); POTASSIUM 4.1 mmol/L (3.5-5.1); TOTAL PROTEIN 5.7 gm/dL (6.4-8.2)
[2018-02-01 04:49] LABS: THYROID STIM HORMONE (HS) 1.48 uIU/ml (0.358-4.75)
[2018-02-01 05:03] LABS: OVALOCYTES FEW; PLATELET SUFFICIENCY LOW (NORMAL); TOTAL CELLS COUNTED 100 #CELLS
[2018-02-01 07:04] LABS: HEMATOCRIT 22.8 % (42.0-52.0); HEMOGLOBIN 7.5 g/dl (14.0-18.0)
[2018-02-01] MEDS ORDERED: MILLIPRED5 MG PO (12:14)
[2018-02-01 14:57] LABS: HEMATOCRIT 28.1 % (42.0-52.0); HEMOGLOBIN 9.4 g/dl (14.0-18.0)
[2018-02-02] VITALS: BP 112/33
[2018-02-02 04:00] VITALS: BP 123/46
[2018-02-02 06:06] LABS: MEAN CORPUSCULAR HGB 29.4 pg (27.0-31.0); MEAN CORPUSCULAR HGB CONC 32.1 g/dl (33.0-37.0); MEAN PLATELET VOLUME 10.2 fl (9.6-12.3); NUCLEATED RED BLOOD CELL 0.1 10*3/uL (0.0-0.0); NUCLEATED RED BLOOD CELL 1.5 % (0.0-0.0); PLATELET COUNT AUTOMATED 68 10*3/uL (130-400); RED BLOOD COUNT 3.06 10*6/uL (4.50-5.90); RED CELL DISTRI WIDTH 27.9 % (0-14.5); WHITE BLOOD COUNT 5.8 10*3/uL (4.8-10.8)
[2018-02-02 06:08] LABS: MEAN CELL VOLUME 91.5 fl (80.0-94.0)
[2018-02-02 06:35] LABS: PLATELET SUFFICIENCY LOW (NORMAL); POLYCHROMASIA SLIGHT; ROULEAUX MODERATE; SCHISTOCYTES FEW; TOTAL CELLS COUNTED 100 #CELLS
[2018-02-02 06:45] LABS: ALBUMIN 3.4 gm/dl (3.1-4.5); ALKALINE PHOSPHATASE 45 U/L (45-117); CHLORIDE 116 mmol/L (98-107); CREATININE 1.34 mg/dL (0.70-1.30); POTASSIUM 4.5 mmol/L (3.5-5.1); SGOT/AST 15 IU/L (3-35); SGPT/ALT 21 U/L (12-78); SODIUM 145 mmol/L (136-145); TOTAL PROTEIN 5.3 gm/dL (6.4-8.2)
[2018-02-02 06:51] LABS: BUN 59 mg/dl (7-24)
[2018-02-02 08:00] VITALS: BP 119/34
[2018-02-02 12:00] VITALS: BP 110/32
[2018-02-02 16:00] VITALS: BP 114/31
[2018-02-02 20:00] VITALS: BP 133/41
[2018-02-03] VITALS (11 sets, daily range): BP systolic 83–147; BP diastolic 39–57
[2018-02-03 05:34] LABS: HEMATOCRIT 26.6 % (42.0-52.0); HEMOGLOBIN 8.4 g/dl (14.0-18.0); MEAN CELL VOLUME 91.1 fl (80.0-94.0); MEAN CORPUSCULAR HGB 28.8 pg (27.0-31.0); MEAN CORPUSCULAR HGB CONC 31.6 g/dl (33.0-37.0); MEAN PLATELET VOLUME 9.8 fl (9.6-12.3); NUCLEATED RED BLOOD CELL 0.1 10*3/uL (0.0-0.0); NUCLEATED RED BLOOD CELL 1.4 % (0.0-0.0); PLATELET COUNT AUTOMATED 57 10*3/uL (130-400); RED BLOOD COUNT 2.92 10*6/uL (4.50-5.90); RED CELL DISTRI WIDTH 27.5 % (0-14.5); WHITE BLOOD COUNT 4.4 10*3/uL (4.8-10.8)
[2018-02-03 05:54] LABS: ALBUMIN 3.2 gm/dl (3.1-4.5); ALKALINE PHOSPHATASE 63 U/L (45-117); CHLORIDE 116 mmol/L (98-107); CREATININE 1.34 mg/dL (0.70-1.30); POTASSIUM 4.2 mmol/L (3.5-5.1); SGOT/AST 16 IU/L (3-35); SGPT/ALT 20 U/L (12-78); SODIUM 145 mmol/L (136-145)
[2018-02-03 05:57] LABS: BUN 45 mg/dl (7-24)
[2018-02-03 07:22] LABS: ATYPICAL LYMPHS 1 % (0-0); BASOPHILS 1 % (0-1); PLATELET SUFFICIENCY LOW (NORMAL); POLYCHROMASIA SLIGHT; ROULEAUX MODERATE; TOTAL CELLS COUNTED 100 #CELLS
[2018-02-04] VITALS: BP 140/54
[2018-02-04 04:00] VITALS: BP 110/58
[2018-02-04 06:32] LABS: HEMATOCRIT 25.3 % (42.0-52.0); HEMOGLOBIN 8.2 g/dl (14.0-18.0); MEAN CELL VOLUME 90.7 fl (80.0-94.0); MEAN CORPUSCULAR HGB 29.4 pg (27.0-31.0); MEAN CORPUSCULAR HGB CONC 32.4 g/dl (33.0-37.0); MEAN PLATELET VOLUME 10.7 fl (9.6-12.3); NUCLEATED RED BLOOD CELL 0.7 % (0.0-0.0); PLATELET COUNT AUTOMATED 65 10*3/uL (130-400); RED BLOOD COUNT 2.79 10*6/uL (4.50-5.90); RED CELL DISTRI WIDTH 27.3 % (0-14.5); WHITE BLOOD COUNT 4.1 10*3/uL (4.8-10.8)
[2018-02-04 06:35] LABS: CHLORIDE 115 mmol/L (98-107); CREATININE 1.09 mg/dL (0.70-1.30); SODIUM 144 mmol/L (136-145)
[2018-02-04 06:38] LABS: BUN 30 mg/dl (7-24)
[2018-02-04 07:45] LABS: BASOPHILS 1 % (0-1); PLATELET SUFFICIENCY LOW (NORMAL); TOTAL CELLS COUNTED 100 #CELLS
[2018-02-04 07:46] LABS: OVALOCYTES FEW
[2018-02-04 07:47] LABS: POLYCHROMASIA SLIGHT; ROULEAUX SLIGHT
[2018-02-04 08:00] VITALS: BP 116/64
[2018-02-04] MEDS ORDERED: Carafate1 GM/10 ML PO (10:35)
[2018-02-04] MEDS ORDERED: PROTONIX40 MG PO (10:35)
[2018-02-04 10:36] VITALS: BP 102/70
== END 2018-02-04 13:52 | disposition home or self-care (01) | DRG 377 ==
LOC: ED 21:45 → ICCU 23:58 → EDHOLD 23:58 → ICCU 02-01 00:14
PROVIDERS: Emergency Medicine Emergency Medical Services; Internal Medicine; Internal Medicine Gastroenterology; Student in an Organized Health Care Education/Training Program
PROC: 30233R1 Transfusion of Nonautologous Platelets into Peripheral Vein, Percutaneous Approach (ICD-10-PCS; principal; 2018-02-01)
PROC: 30233N1 Transfusion of Nonautologous Red Blood Cells into Peripheral Vein, Percutaneous Approach (ICD-10-PCS; principal; 2018-02-01)
PROC: 0DB68ZX Excision of Stomach, Via Natural or Artificial Opening Endoscopic, Diagnostic (ICD-10-PCS; 2018-02-01)
DX: K25.4 Chronic or unspecified gastric ulcer with hemorrhage (principal); N17.0 Acute kidney failure with tubular necrosis; C91.10 Chronic lymphocytic leukemia of B-cell type not having achieved remission; D69.6 Thrombocytopenia, unspecified; E11.51 Type 2 diabetes mellitus with diabetic peripheral angiopathy without gangrene; L03.818 Cellulitis of other sites; N18.3 Chronic kidney disease, stage 3 (moderate); D62 Acute posthemorrhagic anemia; I50.32 Chronic diastolic (congestive) heart failure; I13.0 Hypertensive heart and chronic kidney disease with heart failure and stage 1 through stage 4 chronic kidney disease, or unspecified chronic kidney disease; E11.65 Type 2 diabetes mellitus with hyperglycemia; J45.909 Unspecified asthma, uncomplicated; G40.A09 Absence epileptic syndrome, not intractable, without status epilepticus; I25.119 Atherosclerotic heart disease of native coronary artery with unspecified angina pectoris; E83.41 Hypermagnesemia; E66.9 Obesity, unspecified; Z96.641 Presence of right artificial hip joint; E87.8 Other disorders of electrolyte and fluid balance, not elsewhere classified; E78.5 Hyperlipidemia, unspecified; D53.9 Nutritional anemia, unspecified; E83.51 Hypocalcemia; Z95.1 Presence of aortocoronary bypass graft; Z95.2 Presence of prosthetic heart valve; Z85.46 Personal history of malignant neoplasm of prostate; Z79.82 Long term (current) use of aspirin; Z79.899 Other long term (current) drug therapy; Z95.0 Presence of cardiac pacemaker; Z68.25 Body mass index [BMI] 25.0-25.9, adult; Z82.49 Family history of ischemic heart disease and other diseases of the circulatory system

== ENCOUNTER → 2018-02-10 | Outpatient (CLI) | payer MEDICARE, OTHER ==
[~2018-02-10] MED LIST changes: +Carafate1 GM/10 ML PO; +MILLIPRED5 MG PO; +PROTONIX40 MG PO
[2018-02-10 13:51] LABS: BASO % 0.4 % (0.0-1.0); EOS # 0.1 10*3/uL (0.0-0.4); EOS % 0.7 % (1.0-4.0); HEMOGLOBIN 9.9 g/dl (14.0-18.0); LYMPH # 1.8 10*3/uL (1.3-4.4); LYMPH % 23.5 % (27.0-41.0); MEAN CELL VOLUME 90.6 fl (80.0-94.0); MEAN CORPUSCULAR HGB 29.9 pg (27.0-31.0); MEAN PLATELET VOLUME 11.3 fl (9.6-12.3); MONO # 0.7 10*3/uL (0.1-1.0); MONO % 8.7 % (3.0-9.0); NEUT # 4.9 10*3/uL (2.3-7.9); NEUT % 64.5 % (47.0-73.0); NUCLEATED RED BLOOD CELL 0.3 % (0.0-0.0); PLATELET COUNT AUTOMATED 88 10*3/uL (130-400); RED BLOOD COUNT 3.31 10*6/uL (4.50-5.90); RED CELL DISTRI WIDTH 27.4 % (0-14.5); WHITE BLOOD COUNT 7.6 10*3/uL (4.8-10.8)
== END | disposition home or self-care (01) ==
LOC: LAB 13:04
PROVIDERS: Internal Medicine Hematology & Oncology
DX: Z51.11 Encounter for antineoplastic chemotherapy (principal); C91.10 Chronic lymphocytic leukemia of B-cell type not having achieved remission; R97.20 Elevated prostate specific antigen [PSA]

== ENCOUNTER → 2018-02-13 | Outpatient (CLI) | payer MEDICARE, OTHER ==
[2018-02-13 13:06] LABS: HEMATOCRIT 28.1 % (42.0-52.0); MEAN CELL VOLUME 93.4 fl (80.0-94.0); MEAN CORPUSCULAR HGB 29.9 pg (27.0-31.0); MEAN PLATELET VOLUME 10.4 fl (9.6-12.3); RED BLOOD COUNT 3.01 10*6/uL (4.50-5.90); RED CELL DISTRI WIDTH 27.4 % (0-14.5); WHITE BLOOD COUNT 5.4 10*3/uL (4.8-10.8)
[2018-02-13 13:33] LABS: ALBUMIN 3.7 gm/dl (3.1-4.5); CREATININE 1.51 mg/dL (0.70-1.30); POTASSIUM 4.8 mmol/L (3.5-5.1); TOTAL PROTEIN 5.8 gm/dL (6.4-8.2)
== END | disposition home or self-care (01) ==
LOC: LAB 12:37
DX: M48.062 Spinal stenosis, lumbar region with neurogenic claudication (principal); I10 Essential (primary) hypertension; C91.10 Chronic lymphocytic leukemia of B-cell type not having achieved remission

== ENCOUNTER → 2018-03-10 | Outpatient (CLI) | payer MEDICARE, OTHER ==
[2018-03-10 14:56] LABS: BASO % 0.2 % (0.0-1.0); EOS # 0.1 10*3/uL (0.0-0.4); EOS % 1.1 % (1.0-4.0); HEMATOCRIT 30.5 % (42.0-52.0); LYMPH # 1.5 10*3/uL (1.3-4.4); LYMPH % 23.1 % (27.0-41.0); MEAN CELL VOLUME 94.1 fl (80.0-94.0); MEAN CORPUSCULAR HGB 30.9 pg (27.0-31.0); MEAN CORPUSCULAR HGB CONC 32.8 g/dl (33.0-37.0); MONO # 0.4 10*3/uL (0.1-1.0); MONO % 6.4 % (3.0-9.0); NEUT # 4.3 10*3/uL (2.3-7.9); NEUT % 67.6 % (47.0-73.0); NUCLEATED RED BLOOD CELL 0.3 % (0.0-0.0); PLATELET COUNT AUTOMATED 75 10*3/uL (130-400); RED BLOOD COUNT 3.24 10*6/uL (4.50-5.90); WHITE BLOOD COUNT 6.4 10*3/uL (4.8-10.8)
== END | disposition home or self-care (01) ==
LOC: LAB 14:13
PROVIDERS: Internal Medicine Hematology & Oncology
DX: Z51.11 Encounter for antineoplastic chemotherapy (principal); C91.10 Chronic lymphocytic leukemia of B-cell type not having achieved remission; R97.20 Elevated prostate specific antigen [PSA]

== ENCOUNTER → 2018-04-03 | Outpatient (CLI) | payer MEDICARE, OTHER ==
[2018-04-03 15:21] LABS: BASO % 0.3 % (0.0-1.0); EOS % 0.3 % (1.0-4.0); HEMATOCRIT 32.2 % (42.0-52.0); HEMOGLOBIN 10.6 g/dl (14.0-18.0); LYMPH # 1.6 10*3/uL (1.3-4.4); MEAN CORPUSCULAR HGB 31.3 pg (27.0-31.0); MEAN CORPUSCULAR HGB CONC 32.9 g/dl (33.0-37.0); MEAN PLATELET VOLUME 11.8 fl (9.6-12.3); MONO # 0.3 10*3/uL (0.1-1.0); MONO % 3.9 % (3.0-9.0); NEUT # 5.5 10*3/uL (2.3-7.9); NEUT % 73.3 % (47.0-73.0); PLATELET COUNT AUTOMATED 102 10*3/uL (130-400); RED BLOOD COUNT 3.39 10*6/uL (4.50-5.90); RED CELL DISTRI WIDTH 22.3 % (0-14.5); WHITE BLOOD COUNT 7.5 10*3/uL (4.8-10.8)
== END | disposition home or self-care (01) ==
LOC: LAB 15:01
PROVIDERS: Internal Medicine Hematology & Oncology
DX: Z51.11 Encounter for antineoplastic chemotherapy (principal); C91.10 Chronic lymphocytic leukemia of B-cell type not having achieved remission; R97.20 Elevated prostate specific antigen [PSA]

== ENCOUNTER → 2018-05-09 | Outpatient (CLI) | payer MEDICARE, OTHER ==
[2018-05-09 13:02] LABS: BASO % 0.2 % (0.0-1.0); EOS % 0.3 % (1.0-4.0); HEMATOCRIT 33.2 % (42.0-52.0); HEMOGLOBIN 10.8 g/dl (14.0-18.0); LYMPH # 1.6 10*3/uL (1.3-4.4); LYMPH % 18.3 % (27.0-41.0); MEAN CELL VOLUME 96.5 fl (80.0-94.0); MEAN CORPUSCULAR HGB 31.4 pg (27.0-31.0); MEAN CORPUSCULAR HGB CONC 32.5 g/dl (33.0-37.0); MEAN PLATELET VOLUME 11.5 fl (9.6-12.3); MONO # 0.4 10*3/uL (0.1-1.0); MONO % 4.9 % (3.0-9.0); NEUT # 6.7 10*3/uL (2.3-7.9); NEUT % 74.7 % (47.0-73.0); PLATELET COUNT AUTOMATED 99 10*3/uL (130-400); RED BLOOD COUNT 3.44 10*6/uL (4.50-5.90); RED CELL DISTRI WIDTH 20.2 % (0-14.5)
== END | disposition home or self-care (01) ==
LOC: LAB 12:37
PROVIDERS: Internal Medicine Hematology & Oncology
DX: Z51.11 Encounter for antineoplastic chemotherapy (principal); C91.10 Chronic lymphocytic leukemia of B-cell type not having achieved remission

== ENCOUNTER → 2018-06-09 | Outpatient (CLI) | payer MEDICARE, OTHER | END | disposition home or self-care (01) | LOC: LAB 11:11 | DX: Z51.11 Encounter for antineoplastic chemotherapy (principal); C91.10 Chronic lymphocytic leukemia of B-cell type not having achieved remission; R97.20 Elevated prostate specific antigen [PSA] ==

== ENCOUNTER → 2018-07-09 | Outpatient (CLI) | payer MEDICARE, OTHER ==
[2018-07-09 14:42] LABS: BASO % 0.3 % (0.0-1.0); EOS % 0.4 % (1.0-4.0); HEMATOCRIT 29.2 % (42.0-52.0); HEMOGLOBIN 9.4 g/dl (14.0-18.0); LYMPH # 0.8 10*3/uL (1.3-4.4); LYMPH % 11.3 % (27.0-41.0); MEAN CORPUSCULAR HGB 32.2 pg (27.0-31.0); MEAN CORPUSCULAR HGB CONC 32.2 g/dl (33.0-37.0); MEAN PLATELET VOLUME 12.1 fl (9.6-12.3); MONO # 0.3 10*3/uL (0.1-1.0); MONO % 5.1 % (3.0-9.0); NEUT # 5.5 10*3/uL (2.3-7.9); NEUT % 81.6 % (47.0-73.0); PLATELET COUNT AUTOMATED 84 10*3/uL (130-400); RED BLOOD COUNT 2.92 10*6/uL (4.50-5.90); RED CELL DISTRI WIDTH 20.3 % (0-14.5); WHITE BLOOD COUNT 6.7 10*3/uL (4.8-10.8)
== END | disposition home or self-care (01) ==
LOC: LAB 13:45
PROVIDERS: Internal Medicine Hematology & Oncology
DX: Z51.11 Encounter for antineoplastic chemotherapy (principal); C91.10 Chronic lymphocytic leukemia of B-cell type not having achieved remission; R97.20 Elevated prostate specific antigen [PSA]

== ENCOUNTER → 2018-08-05 | Outpatient (CLI) | payer MEDICARE, OTHER ==
[2018-08-05 13:32] LABS: BASO % 0.4 % (0.0-1.0); EOS # 0.1 10*3/uL (0.0-0.4); EOS % 1.2 % (1.0-4.0); HEMATOCRIT 26.9 % (42.0-52.0); HEMOGLOBIN 8.5 g/dl (14.0-18.0); LYMPH # 0.6 10*3/uL (1.3-4.4); LYMPH % 12.3 % (27.0-41.0); MEAN CELL VOLUME 100.4 fl (80.0-94.0); MEAN CORPUSCULAR HGB 31.7 pg (27.0-31.0); MEAN CORPUSCULAR HGB CONC 31.6 g/dl (33.0-37.0); MEAN PLATELET VOLUME 11.2 fl (9.6-12.3); MONO # 0.4 10*3/uL (0.1-1.0); MONO % 7.2 % (3.0-9.0); NEUT # 3.8 10*3/uL (2.3-7.9); NEUT % 77.5 % (47.0-73.0); NUCLEATED RED BLOOD CELL 0.4 % (0.0-0.0); PLATELET COUNT AUTOMATED 73 10*3/uL (130-400); RED BLOOD COUNT 2.68 10*6/uL (4.50-5.90); RED CELL DISTRI WIDTH 20.8 % (0-14.5); WHITE BLOOD COUNT 4.9 10*3/uL (4.8-10.8)
== END | disposition home or self-care (01) ==
LOC: LAB 12:22
PROVIDERS: Internal Medicine Hematology & Oncology
DX: Z51.11 Encounter for antineoplastic chemotherapy (principal); C91.10 Chronic lymphocytic leukemia of B-cell type not having achieved remission; R97.20 Elevated prostate specific antigen [PSA]

== ENCOUNTER → 2018-11-21 | Outpatient (CLI) | payer MEDICARE, OTHER ==
[~2018-11-21] MED LIST changes: +MAPAP EXTRA ST500 M1 PO; +PENTOXIFYLLINE400 MG PO
[2018-11-21 12:33] LABS: HEMATOCRIT 30.6 % (42.0-52.0); HEMOGLOBIN 9.4 g/dl (14.0-18.0); MEAN CELL VOLUME 91.3 fl (80.0-94.0); MEAN CORPUSCULAR HGB 28.1 pg (27.0-31.0); MEAN CORPUSCULAR HGB CONC 30.7 g/dl (33.0-37.0); PLATELET COUNT AUTOMATED 81 10*3/uL (130-400); RED BLOOD COUNT 3.35 10*6/uL (4.50-5.90); RED CELL DISTRI WIDTH 19.9 % (0-14.5); WHITE BLOOD COUNT 4.3 10*3/uL (4.8-10.8)
[2018-11-21 13:17] LABS: BASOPHILS 2 % (0-1); TOTAL CELLS COUNTED 100 #CELLS
[2018-11-21 13:18] LABS: OVALOCYTES FEW; PLATELET SUFFICIENCY LOW (NORMAL); POLYCHROMASIA SLIGHT
== END | disposition home or self-care (01) ==
LOC: LAB 11:50
PROVIDERS: Internal Medicine Hematology & Oncology
DX: Z51.11 Encounter for antineoplastic chemotherapy (principal); C83.00 Small cell B-cell lymphoma, unspecified site; R97.20 Elevated prostate specific antigen [PSA]

== ENCOUNTER → 2018-12-15 | Outpatient (CLI) | payer MEDICARE, OTHER | END | disposition home or self-care (01) | LOC: LAB 13:41 | DX: R97.20 Elevated prostate specific antigen [PSA] (principal) ==

== ENCOUNTER → 2019-01-15 | Outpatient (CLI) | payer MEDICARE, OTHER ==
[2019-01-15 10:50] LABS: BASO % 0.2 % (0.0-1.0); EOS % 0.4 % (1.0-4.0); HEMATOCRIT 35.1 % (42.0-52.0); HEMOGLOBIN 11.1 g/dl (14.0-18.0); LYMPH # 0.4 10*3/uL (1.3-4.4); LYMPH % 7.2 % (27.0-41.0); MEAN CORPUSCULAR HGB 30.7 pg (27.0-31.0); MEAN CORPUSCULAR HGB CONC 31.6 g/dl (33.0-37.0); MONO # 0.3 10*3/uL (0.1-1.0); MONO % 4.4 % (3.0-9.0); NEUT # 4.9 10*3/uL (2.3-7.9); PLATELET COUNT AUTOMATED 80 10*3/uL (130-400); RED BLOOD COUNT 3.62 10*6/uL (4.50-5.90); RED CELL DISTRI WIDTH 24.5 % (0-14.5); WHITE BLOOD COUNT 5.7 10*3/uL (4.8-10.8)
== END | disposition home or self-care (01) ==
LOC: LAB 10:01
PROVIDERS: Internal Medicine Hematology & Oncology
DX: Z51.11 Encounter for antineoplastic chemotherapy (principal); C91.10 Chronic lymphocytic leukemia of B-cell type not having achieved remission; D63.1 Anemia in chronic kidney disease; N18.3 Chronic kidney disease, stage 3 (moderate); R97.20 Elevated prostate specific antigen [PSA]

== ENCOUNTER → 2019-03-13 | Outpatient (CLI) | payer MEDICARE, OTHER ==
[2019-03-13 10:36] LABS: BASO % 0.3 % (0.0-1.0); EOS # 0.1 10*3/uL (0.0-0.4); HEMATOCRIT 33.7 % (42.0-52.0); HEMOGLOBIN 10.9 g/dl (14.0-18.0); LYMPH # 0.9 10*3/uL (1.3-4.4); LYMPH % 16.2 % (27.0-41.0); MEAN CELL VOLUME 101.2 fl (80.0-94.0); MEAN CORPUSCULAR HGB 32.7 pg (27.0-31.0); MEAN CORPUSCULAR HGB CONC 32.3 g/dl (33.0-37.0); MEAN PLATELET VOLUME 10.5 fl (9.6-12.3); MONO # 0.4 10*3/uL (0.1-1.0); MONO % 6.9 % (3.0-9.0); NEUT # 4.3 10*3/uL (2.3-7.9); NEUT % 74.1 % (47.0-73.0); NUCLEATED RED BLOOD CELL 0.3 % (0.0-0.0); PLATELET COUNT AUTOMATED 70 10*3/uL (130-400); RED BLOOD COUNT 3.33 10*6/uL (4.50-5.90); RED CELL DISTRI WIDTH 19.2 % (0-14.5); WHITE BLOOD COUNT 5.8 10*3/uL (4.8-10.8)
== END | disposition home or self-care (01) ==
LOC: LAB 10:18
PROVIDERS: Internal Medicine Hematology & Oncology
DX: Z51.11 Encounter for antineoplastic chemotherapy (principal); C83.00 Small cell B-cell lymphoma, unspecified site; N18.3 Chronic kidney disease, stage 3 (moderate); D63.1 Anemia in chronic kidney disease; E61.1 Iron deficiency; R97.20 Elevated prostate specific antigen [PSA]

== ENCOUNTER → 2019-04-08 | Outpatient (CLI) | payer MEDICARE, OTHER ==
[2019-04-08 10:32] LABS: BASO % 0.3 % (0.0-1.0); EOS # 0.1 10*3/uL (0.0-0.4); HEMATOCRIT 34.7 % (42.0-52.0); HEMOGLOBIN 11.2 g/dl (14.0-18.0); LYMPH # 0.7 10*3/uL (1.3-4.4); LYMPH % 12.1 % (27.0-41.0); MEAN CELL VOLUME 103.3 fl (80.0-94.0); MEAN CORPUSCULAR HGB 33.3 pg (27.0-31.0); MEAN CORPUSCULAR HGB CONC 32.3 g/dl (33.0-37.0); MEAN PLATELET VOLUME 10.8 fl (9.6-12.3); MONO # 0.3 10*3/uL (0.1-1.0); MONO % 5.3 % (3.0-9.0); NEUT # 4.7 10*3/uL (2.3-7.9); NEUT % 80.1 % (47.0-73.0); PLATELET COUNT AUTOMATED 60 10*3/uL (130-400); RED BLOOD COUNT 3.36 10*6/uL (4.50-5.90); RED CELL DISTRI WIDTH 18.1 % (0-14.5); WHITE BLOOD COUNT 5.9 10*3/uL (4.8-10.8)
== END | disposition home or self-care (01) ==
LOC: LAB 10:01
PROVIDERS: Internal Medicine Hematology & Oncology
DX: Z51.11 Encounter for antineoplastic chemotherapy (principal); I12.9 Hypertensive chronic kidney disease with stage 1 through stage 4 chronic kidney disease, or unspecified chronic kidney disease; D63.1 Anemia in chronic kidney disease; N18.3 Chronic kidney disease, stage 3 (moderate); R97.20 Elevated prostate specific antigen [PSA]; C91.10 Chronic lymphocytic leukemia of B-cell type not having achieved remission; E61.1 Iron deficiency

== ENCOUNTER 2019-04-15 16:17 | Inpatient (IN) | payer MEDICARE, OTHER ==
[~2019-04-15] VITALS: Ht 175 cm; Wt 86.8 kg
[2019-04-15] VITALS (8 sets, daily range): BP systolic 86–106; BP diastolic 40–60
--- NOTE | ~2019-04-15 | EKG ---
[place], [place] ELECTROCARDIOGRAM REPORT NAME: LALITA MARI UNIT #: [id number] ROOM: 503 DOCTOR: SIMI DRAFT REPORT BIRTHDATE: [birth year] [facility] Test Date: 2019-04-15 Test Time: 22:13:48 Pat Name: LALITA MARI Department: Room: 503 Gender: M Grinder Chipper: Perla Asif : 1930 Requested By: ASHLEY GUAMAN Order Number: [id number] Reading MD: Rylee Linn MD Measurements Intervals [place] Rate: 63 P: MD: 175 QRS: 45 QRSD: 82 T: -28 QT: 469 QTc: 481 Interpretive Statements Atrial-paced rhythm Nonspecific T abnormalities, inferior leads Borderline prolonged QT interval Baseline wander in lead(s) V5 Electronically Signed On 04-17-2019 4:15:03 PDT by Rylee Linn MD CM:EKGRPT:ELECTROCARDIOGRAM REPORT 2213 0415 ASHLEY BELCHER DRAFT REPORT ASHLEY GUAMAN M.D.
--- NOTE | ~2019-04-15 | EKG ---
[place], [place] ELECTROCARDIOGRAM REPORT NAME: LALITA MARI UNIT #: [id number] ROOM: 503 DOCTOR: SIMI DRAFT REPORT BIRTHDATE: [birth year] [facility] Test Date: 2019-04-15 Test Time: 19:10:33 Pat Name: LALITA MARI Department: Room: 503 Gender: M Syrup Filterer: Linda Paniagua : 1930 Requested By: ASHLEY GUAMAN Order Number: [id number] Reading MD: Rylee Linn MD Measurements Intervals [place] Rate: 60 P: [place]: 144 QRS: 36 QRSD: 80 T: -12 QT: 475 QTc: 475 Interpretive Statements Atrial-paced rhythm Borderline T abnormalities, inferior leads Electronically Signed On 04-17-2019 4:14:18 PDT by Rylee Linn MD CM:EKGRPT:ELECTROCARDIOGRAM REPORT 1910 0414 ASHLEY BELCHER DRAFT REPORT ASHLEY GUAMAN M.D.
--- NOTE | ~2019-04-15 | EKG ---
[place], [place] ELECTROCARDIOGRAM REPORT NAME: LALITA MARI UNIT #: [id number] ROOM: 503 DOCTOR: SIMI DRAFT REPORT BIRTHDATE: [birth year] [facility] Test Date: 2019-04-15 Test Time: 16:28:41 Pat Name: LALITA MARI Department: Room: 503 Gender: M Family Program Specialist: : 1930 Requested By: ASHLEY GUAMAN Order Number: [id number] Reading MD: Rylee Linn MD Measurements Intervals [place] Rate: 63 P: 65 IN: 151 QRS: 47 QRSD: 76 T: -22 QT: 437 QTc: 448 Interpretive Statements Sinus rhythm Probable left atrial enlargement Nonspecific T abnormalities, inferior leads Electronically Signed On 04-17-2019 4:59:44 PDT by Rylee Linn MD CM:EKGRPT:ELECTROCARDIOGRAM REPORT [id number] 0459 ASHLEY BELCHER DRAFT REPORT ASHLEY GUAMAN M.D.
[~2019-04-15 16:17] MED LIST changes: -MAPAP EXTRA ST500 M1 PO; -PENTOXIFYLLINE400 MG PO
[2019-04-15 16:47] LABS: BASO % 0.1 % (0.0-1.0); LYMPH # 0.6 10*3/uL (1.3-4.4); MEAN CELL VOLUME 101.2 fl (80.0-94.0); MEAN CORPUSCULAR HGB 33.7 pg (27.0-31.0); MEAN CORPUSCULAR HGB CONC 33.3 g/dl (33.0-37.0); MEAN PLATELET VOLUME 10.6 fl (9.6-12.3); MONO # 0.5 10*3/uL (0.1-1.0); MONO % 5.2 % (3.0-9.0); NEUT # 7.7 10*3/uL (2.3-7.9); NEUT % 86.9 % (47.0-73.0); PLATELET COUNT AUTOMATED 53 10*3/uL (130-400); RED BLOOD COUNT 3.26 10*6/uL (4.50-5.90); RED CELL DISTRI WIDTH 18.3 % (0-14.5); WHITE BLOOD COUNT 8.8 10*3/uL (4.8-10.8)
[2019-04-15 17:04] LABS: ALBUMIN 3.8 gm/dl (3.1-4.5); ALKALINE PHOSPHATASE 88 U/L (45-117); BUN 43 mg/dl (7-24); CHLORIDE 108 mmol/L (98-107); SGOT/AST 24 IU/L (3-35); SGPT/ALT 28 U/L (12-78); SODIUM 138 mmol/L (136-145); TOTAL PROTEIN 6.3 gm/dL (6.4-8.2)
[2019-04-15 17:06] LABS: TROPONIN I < 0.015 ng/ml (<0.045)
[2019-04-15 17:15] LABS: ACT PARTIAL THROMBO TIME 27.6 SECONDS (20.0-32.1); INTERNATIONAL NORM RATIO 1.2 (2.0-3.5)
[2019-04-15 17:30] LABS: BILIRUBIN NEGATIVE (NEGATIVE); BLOOD NEGATIVE (NEGATIVE); CLARITY CLEAR (CLEAR); COLOR YELLOW (YELLOW); GLUCOSE NEGATIVE (NEGATIVE); KETONE NEGATIVE (NEGATIVE); LEUKO ESTERASE NEGATIVE (NEGATIVE); NITRITE NEGATIVE (NEGATIVE); PH 5.5 (5.0-9.0)
[2019-04-15 17:36] LABS: BACTERIA 1+; HYALINE CAST 0-2; MUCOUS 1+; WBC 0-2 wbc/hpf (0-5)
[2019-04-16] VITALS (13 sets, daily range): BP systolic 91–136; BP diastolic 41–72
[2019-04-16 06:06] LABS: ALBUMIN 3.2 gm/dl (3.1-4.5); CREATININE 1.53 mg/dL (0.70-1.30); POTASSIUM 3.8 mmol/L (3.5-5.1); TOTAL PROTEIN 5.4 gm/dL (6.4-8.2)
[2019-04-16 06:11] LABS: THYROID STIM HORMONE (HS) 0.696 uIU/ml (0.358-4.75)
[2019-04-16 06:34] LABS: BASO % 0.2 % (0.0-1.0); HEMATOCRIT 29.9 % (42.0-52.0); HEMOGLOBIN 9.7 g/dl (14.0-18.0); LYMPH # 0.5 10*3/uL (1.3-4.4); LYMPH % 11.8 % (27.0-41.0); MEAN CELL VOLUME 103.5 fl (80.0-94.0); MEAN CORPUSCULAR HGB 33.6 pg (27.0-31.0); MEAN CORPUSCULAR HGB CONC 32.4 g/dl (33.0-37.0); MEAN PLATELET VOLUME 13.2 fl (9.6-12.3); MONO # 0.3 10*3/uL (0.1-1.0); MONO % 6.1 % (3.0-9.0); NEUT # 3.3 10*3/uL (2.3-7.9); NEUT % 81.2 % (47.0-73.0); PLATELET COUNT AUTOMATED 52 10*3/uL (130-400); RED BLOOD COUNT 2.89 10*6/uL (4.50-5.90); RED CELL DISTRI WIDTH 18.6 % (0-14.5); WHITE BLOOD COUNT 4.1 10*3/uL (4.8-10.8)
[2019-04-16 06:48] LABS: INTERNATIONAL NORM RATIO 1.1 (2.0-3.5)
--- NOTE | 2019-04-16 08:00 | NUR ---
A 88, admitted to 5E, under the services of STACEY Segundo DO with a diagnosis of CHOLEYLITHIASIS, CHOLEYCYSTITIS, SEPSIS. Chief complaint is WEAKNESS, NAUSEA, VOMITING, DIARRHEA x2-3 DAYS. Patient arrived via ambulance from ER. Monitor applied. Initial assessment completed. Vital signs taken and recorded. STACEY SEGUNDO DO notified of admission to the unit. Orders received. See assessment for past medical history, medications and allergies. Patient and/or family oriented to unit. [facility] visitation policy reviewed. Clothing/patient valuable form completed. AMI BURNS
[2019-04-16 08:10] LABS: VITAMIN D, 25-HYDROXY 23.5 ng/mL (30-100)
--- NOTE | 2019-04-16 08:22 | NUR ---
NOTIFIED OF +BLOOD CULTURES. NO NEW ORDERS.
--- NOTE | 2019-04-16 08:33 | NUR ---
PT STATES HE DOES NOT KNOW HIS HOME MEDS BUT THAT HIS WOULD BE IN LATER TODAY AND WILL BRING A LIST OF HIS HOME MEDS.
--- NOTE | 2019-04-16 09:25 | NUR ---
NOTIFIED OF NEW CONSULT. SAID TO ORDER A HIIDA SCAN AND NS @125 CONTINUOUS. SAID HE WOULD BE IN TO SEE THE PT SHORTLY.
--- NOTE | 2019-04-16 09:39 | NUR ---
NEW CONSULT CALLED TO 'S OFFICE. MESSAGE LEFT. AWAITING CALL BACK.
[2019-04-16] MEDS ORDERED: PENTOXIFYLLINE400 MG PO (10:49)
[2019-04-16] MEDS ORDERED: CLARITIN10 MG PO (10:52)
[2019-04-16] MEDS ORDERED: MAPAP EXTRA ST500 M1 PO (10:53)
--- NOTE | 2019-04-16 10:54 | NUR ---
MED REC UPDATED PER LIST PROVIDED BY .
--- NOTE | 2019-04-16 11:35 | NUR ---
NOTIFIED THAT PTs MED REC HAS BEEN UPDATED.
--- NOTE | 2019-04-16 12:13 | NUR ---
Engraver Rubber in to talk to patient. Patient states lives at HOME with . There are NO steps in the home. Physician: DIOR BREAUX Pharmacy: [facility] health services: NONE Patient's level of ADLs: INDEPENDENT Patient has working utilities: YES DME: CANE Follow-up physician's appointment after d/c: WILL BE MADE BY HOSPITALIST NURSE DIRECTOR ON DISCHARGE Does patient want to access PORTAL?: NO Discharge plan PT LIVES AT [facility] WITH HIS . STATES HE IS INDEPENDENT IN HIS CARE AND IF HE NEEDS ANYTHING THEY GET IT FOR THEM. PT AT BEDSIDE AND AGREES THAT THEY HAVE NO NEEDS. WILL CONTINUE TO FOLLOW. WILL HAVE A RIDE HOME ON DISCHARGE.. GUICHO LAWRENCE
--- NOTE | 2019-04-16 14:02 | NUR ---
Nursing screen received and chart review completed. Patient was admitted from [facility] where he lives with his and is independent in all ADls. At this time no OT is indicated. If a decline in ADL or functional mobility then refer to OT. Thank you. Trinity Tavares OTR/L
--- NOTE | 2019-04-16 14:37 | NUR ---
DOWN FOR HIDA SCAN.
--- NOTE | 2019-04-16 18:20 | NUR ---
IN TO SEE PT.
--- NOTE | 2019-04-16 20:06 | NUR ---
NOTIFIED THAT THE PTs HOME MEDS HAVE NOT BEEN REORDERED YET. SAID OK.
--- NOTE | 2019-04-16 20:35 | NUR ---
24 HR chart check completed.
--- NOTE | 2019-04-16 21:00 | NUR ---
SLEEPING. AWAKENS EASILY. RESPIRATIONS EASY. LUNGS DIMINISHED, CLEAR. PULSE OX 97% RA. ABD SOFT WITH NORMOACTIVE BOWEL SOUNDS, DENIES N/V/D. TEDS/SCDS IN PLACE. IV FLUIDS INFUSING PER ORDER. CALL LIGHT WITHIN REACH. NO VOICED COMPLAINTS
[2019-04-17] VITALS (8 sets, daily range): BP systolic 88–134; BP diastolic 47–62
--- NOTE | 2019-04-17 | NUR ---
SLEEPING. NO DISTRESS NOTED. RESPIRATIONS EASY. VSS. IV FLUIDS MAINTAINED. NPO FOR TESTING IN AM
--- NOTE | 2019-04-17 03:00 | NUR ---
SLEEPING. NO DISTRESS NOTED. IV FLUIDS MAINTAINED. CALL LIGHT WITHIN REACH
--- NOTE | 2019-04-17 06:00 | NUR ---
SLEPT THROUGHOUT NIGHT WITH NO DISTRESS NOTED. RESPIRATIONS EASY. IV FLUIDS MAINTAINED. REMAINS NPO FOR TESTING THIS AM. CALL LIGHT WITHIN REACH. NO VOICED COMPLAINTS
[2019-04-17 06:39] LABS: CREATININE 1.43 mg/dL (0.70-1.30); POTASSIUM 3.8 mmol/L (3.5-5.1)
[2019-04-17 07:03] LABS: HEMATOCRIT 30.6 % (42.0-52.0); HEMOGLOBIN 9.9 g/dl (14.0-18.0); MEAN CELL VOLUME 102.7 fl (80.0-94.0); MEAN CORPUSCULAR HGB 33.2 pg (27.0-31.0); MEAN CORPUSCULAR HGB CONC 32.4 g/dl (33.0-37.0); PLATELET COUNT AUTOMATED 43 10*3/uL (130-400); RED BLOOD COUNT 2.98 10*6/uL (4.50-5.90); RED CELL DISTRI WIDTH 18.2 % (0-14.5); WHITE BLOOD COUNT 4.3 10*3/uL (4.8-10.8)
--- NOTE | 2019-04-17 07:24 | NUR ---
Patient comes from [facility]. Patient will return when medically stable.
[2019-04-17 08:16] LABS: TOTAL CELLS COUNTED 100 #CELLS
[2019-04-17 08:20] LABS: BURR CELLS FEW; OVALOCYTES MODERATE; PLATELET SUFFICIENCY LOW (NORMAL)
--- NOTE | 2019-04-17 08:33 | NUR ---
Updated clinicals faxed to [facility] for review. patient will return to independent living when medically stable for discharge.
--- NOTE | 2019-04-17 08:58 | NUR ---
Nutritional Support Services Note: Pt was triggered for nutritional consult for vomiting, and loss of appetite >3 days. His current diet order is clear liquids. Will follow up with patient once diet progresses. No nutrition intervention needed at this time. John Mcguire [facility] CPD Student
--- NOTE | 2019-04-17 09:50 | NUR ---
DOWN FOR TARIQ AT THIS TIME.
--- NOTE | 2019-04-17 11:41 | NUR ---
PT RETURNED FROM OR. VITALS STABLE. REQUESTING TO SLEEP AT THIS TIME. WILL MONITOR.
--- NOTE | 2019-04-17 11:55 | NUR ---
BACK TO ROOM FROM TARIQ.
--- NOTE | 2019-04-17 12:24 | NUR ---
PT CONTINUES TO STATE THAT IF HE HAS NEEDS AFTER DISCHARGE [facility] WILL TAKE CARE OF IT. WILL CONTINUE TO FOLLOW.
--- NOTE | 2019-04-17 12:54 | NUR ---
PHYSICAL THERAPY Nursing screen received. Chart review complete. Recommend normal daily mobility with nursing prn. If difficulties with mobilty arise, please order PT when medically appropriate. Thank you. Lyly Rojas,PT
--- NOTE | 2019-04-17 19:26 | NUR ---
ATTEMPTED TO CALL FOR NURSE TO NURSE. PHONE NUMBER LEFT WITH [facility] CHEST OFFICER. NURSE TO CALL BACK.
--- NOTE | 2019-04-17 19:32 | NUR ---
Discharge instructions reviewed with patient/family. Patient receptive and verbalizes understanding. Follow-up care arranged. Written instructions given to patient/family. AMI BURNS
--- NOTE | 2019-04-17 20:02 | NUR ---
NURSE TO NURSE REPORT GIVEN TO LAURIE MONTOYA AT [facility].
== END 2019-04-17 19:32 | disposition short-term general hospital (02) | DRG 314 ==
LOC: ED 16:17 → 5E 22:48 → EDHOLD 22:48 → 5E 04-16 07:09
PROVIDERS: Emergency Medicine; Student in an Organized Health Care Education/Training Program; ADMIT Internal Medicine
PROC: B24BZZ4 Ultrasonography of Heart with Aorta, Transesophageal (ICD-10-PCS; principal; 2019-04-17)
DX: T82.7XXA Infection and inflammatory reaction due to other cardiac and vascular devices, implants and grafts, initial encounter (principal); A41.9 Sepsis, unspecified organism; I50.32 Chronic diastolic (congestive) heart failure; C91.10 Chronic lymphocytic leukemia of B-cell type not having achieved remission; I13.0 Hypertensive heart and chronic kidney disease with heart failure and stage 1 through stage 4 chronic kidney disease, or unspecified chronic kidney disease; E44.1 Mild protein-calorie malnutrition; K80.00 Calculus of gallbladder with acute cholecystitis without obstruction; K83.09 Other cholangitis; T82.6XXA Infection and inflammatory reaction due to cardiac valve prosthesis, initial encounter; I08.2 Rheumatic disorders of both aortic and tricuspid valves; Y83.1 Surgical operation with implant of artificial internal device as the cause of abnormal reaction of the patient, or of later complication, without mention of misadventure at the time of the procedure; E87.8 Other disorders of electrolyte and fluid balance, not elsewhere classified; D53.9 Nutritional anemia, unspecified; E78.5 Hyperlipidemia, unspecified; D69.6 Thrombocytopenia, unspecified; E11.65 Type 2 diabetes mellitus with hyperglycemia; E66.3 Overweight; Z96.641 Presence of right artificial hip joint; N18.3 Chronic kidney disease, stage 3 (moderate); E11.51 Type 2 diabetes mellitus with diabetic peripheral angiopathy without gangrene; E11.22 Type 2 diabetes mellitus with diabetic chronic kidney disease; R19.7 Diarrhea, unspecified; E83.51 Hypocalcemia; Z95.0 Presence of cardiac pacemaker; Z85.46 Personal history of malignant neoplasm of prostate; Z95.2 Presence of prosthetic heart valve; Z95.1 Presence of aortocoronary bypass graft; Z82.49 Family history of ischemic heart disease and other diseases of the circulatory system; Y92.89 Other specified places as the place of occurrence of the external cause; Z79.899 Other long term (current) drug therapy; Z68.28 Body mass index [BMI] 28.0-28.9, adult

== ENCOUNTER → 2019-06-04 | Outpatient (CLI) | payer MEDICARE, OTHER ==
[~2019-06-04] MED LIST changes: +MAPAP EXTRA ST500 M1 PO; +PENTOXIFYLLINE400 MG PO
[2019-06-04 11:07] LABS: BASO % 0.4 % (0.0-1.0); EOS # 0.1 10*3/uL (0.0-0.4); EOS % 0.8 % (1.0-4.0); HEMATOCRIT 38.9 % (42.0-52.0); HEMOGLOBIN 12.6 g/dl (14.0-18.0); LYMPH % 13.1 % (27.0-41.0); MEAN CELL VOLUME 100.8 fl (80.0-94.0); MEAN CORPUSCULAR HGB 32.6 pg (27.0-31.0); MEAN CORPUSCULAR HGB CONC 32.4 g/dl (33.0-37.0); MEAN PLATELET VOLUME 9.7 fl (9.6-12.3); MONO # 0.4 10*3/uL (0.1-1.0); MONO % 5.7 % (3.0-9.0); NEUT # 5.8 10*3/uL (2.3-7.9); NEUT % 78.8 % (47.0-73.0); PLATELET COUNT AUTOMATED 79 10*3/uL (130-400); RED BLOOD COUNT 3.86 10*6/uL (4.50-5.90); RED CELL DISTRI WIDTH 17.9 % (0-14.5); WHITE BLOOD COUNT 7.4 10*3/uL (4.8-10.8)
== END | disposition home or self-care (01) ==
LOC: LAB 10:48
PROVIDERS: Internal Medicine Hematology & Oncology
DX: Z51.11 Encounter for antineoplastic chemotherapy (principal); C91.10 Chronic lymphocytic leukemia of B-cell type not having achieved remission; R97.20 Elevated prostate specific antigen [PSA]; E61.1 Iron deficiency; D63.1 Anemia in chronic kidney disease; N18.3 Chronic kidney disease, stage 3 (moderate)

== ENCOUNTER → 2019-06-19 | Outpatient (CLI) | payer MEDICARE, OTHER ==
[2019-06-19 15:07] LABS: CREATININE 1.45 mg/dL (0.70-1.30); POTASSIUM 4.5 mmol/L (3.5-5.1)
== END | disposition home or self-care (01) ==
LOC: LAB 14:23
PROVIDERS: Internal Medicine Cardiovascular Disease
DX: I35.0 Nonrheumatic aortic (valve) stenosis (principal); R78.81 Bacteremia; C83.00 Small cell B-cell lymphoma, unspecified site; I10 Essential (primary) hypertension; Z95.2 Presence of prosthetic heart valve

== ENCOUNTER → 2019-08-05 | Outpatient (CLI) | payer MEDICARE, OTHER ==
[2019-08-05 12:43] LABS: BASO % 0.1 % (0.0-1.0); EOS # 0.1 10*3/uL (0.0-0.4); EOS % 1.4 % (1.0-4.0); HEMATOCRIT 35.1 % (42.0-52.0); HEMOGLOBIN 11.2 g/dl (14.0-18.0); LYMPH # 1.1 10*3/uL (1.3-4.4); LYMPH % 14.6 % (27.0-41.0); MEAN CELL VOLUME 100.3 fl (80.0-94.0); MEAN CORPUSCULAR HGB CONC 31.9 g/dl (33.0-37.0); MEAN PLATELET VOLUME 12.4 fl (9.6-12.3); MONO # 0.5 10*3/uL (0.1-1.0); MONO % 7.4 % (3.0-9.0); NEUT # 5.4 10*3/uL (2.3-7.9); NEUT % 75.7 % (47.0-73.0); PLATELET COUNT AUTOMATED 94 10*3/uL (130-400); RED CELL DISTRI WIDTH 18.4 % (0-14.5); WHITE BLOOD COUNT 7.2 10*3/uL (4.8-10.8)
[2019-08-05 13:06] LABS: ALBUMIN 3.9 gm/dl (3.1-4.5); ALKALINE PHOSPHATASE 91 U/L (45-117); BUN 32 mg/dl (7-24); CHLORIDE 111 mmol/L (98-107); CREATININE 1.32 mg/dL (0.70-1.30); POTASSIUM 4.3 mmol/L (3.5-5.1); SGOT/AST 23 IU/L (3-35); SGPT/ALT 23 U/L (12-78); SODIUM 143 mmol/L (136-145); TOTAL PROTEIN 6.3 gm/dL (6.4-8.2)
== END | disposition home or self-care (01) ==
LOC: LAB 11:44
PROVIDERS: Internal Medicine Hematology & Oncology
DX: Z51.11 Encounter for antineoplastic chemotherapy (principal); C91.10 Chronic lymphocytic leukemia of B-cell type not having achieved remission; N18.3 Chronic kidney disease, stage 3 (moderate); D63.1 Anemia in chronic kidney disease; E61.1 Iron deficiency; R97.20 Elevated prostate specific antigen [PSA]

== ENCOUNTER → 2019-10-12 | Outpatient (CLI) | payer MEDICARE, OTHER ==
[2019-10-12 13:03] LABS: BASO % 0.3 % (0.0-1.0); EOS # 0.1 10*3/uL (0.0-0.4); HEMATOCRIT 35.8 % (42.0-52.0); HEMOGLOBIN 11.4 g/dl (14.0-18.0); LYMPH # 1.3 10*3/uL (1.3-4.4); LYMPH % 18.2 % (27.0-41.0); MEAN CELL VOLUME 101.1 fl (80.0-94.0); MEAN CORPUSCULAR HGB 32.2 pg (27.0-31.0); MEAN CORPUSCULAR HGB CONC 31.8 g/dl (33.0-37.0); MEAN PLATELET VOLUME 9.8 fl (9.6-12.3); MONO # 0.5 10*3/uL (0.1-1.0); NEUT % 72.1 % (47.0-73.0); PLATELET COUNT AUTOMATED 78 10*3/uL (130-400); RED BLOOD COUNT 3.54 10*6/uL (4.50-5.90); RED CELL DISTRI WIDTH 19.8 % (0-14.5)
== END | disposition home or self-care (01) ==
LOC: LAB 12:37
PROVIDERS: Internal Medicine Hematology & Oncology
DX: Z51.11 Encounter for antineoplastic chemotherapy (principal); C91.10 Chronic lymphocytic leukemia of B-cell type not having achieved remission; N18.3 Chronic kidney disease, stage 3 (moderate); D63.1 Anemia in chronic kidney disease; E61.1 Iron deficiency; R97.20 Elevated prostate specific antigen [PSA]

== ENCOUNTER → 2019-12-09 | Outpatient (CLI) | payer MEDICARE, OTHER ==
[2019-12-09 12:28] LABS: BASO % 0.2 % (0.0-1.0); EOS # 0.1 10*3/uL (0.0-0.4); EOS % 1.3 % (1.0-4.0); HEMATOCRIT 29.4 % (42.0-52.0); HEMOGLOBIN 9.5 g/dl (14.0-18.0); LYMPH # 0.9 10*3/uL (1.3-4.4); LYMPH % 19.3 % (27.0-41.0); MEAN CELL VOLUME 99.3 fl (80.0-94.0); MEAN CORPUSCULAR HGB 32.1 pg (27.0-31.0); MEAN CORPUSCULAR HGB CONC 32.3 g/dl (33.0-37.0); MEAN PLATELET VOLUME 10.2 fl (9.6-12.3); MONO # 0.3 10*3/uL (0.1-1.0); MONO % 6.6 % (3.0-9.0); NEUT # 3.3 10*3/uL (2.3-7.9); NEUT % 71.3 % (47.0-73.0); PLATELET COUNT AUTOMATED 53 10*3/uL (130-400); RED BLOOD COUNT 2.96 10*6/uL (4.50-5.90); RED CELL DISTRI WIDTH 19.6 % (0-14.5); WHITE BLOOD COUNT 4.6 10*3/uL (4.8-10.8)
== END | disposition home or self-care (01) ==
LOC: LAB 11:54
PROVIDERS: Internal Medicine Hematology & Oncology
DX: Z51.11 Encounter for antineoplastic chemotherapy (principal); D63.1 Anemia in chronic kidney disease; E61.1 Iron deficiency; C91.10 Chronic lymphocytic leukemia of B-cell type not having achieved remission; N18.3 Chronic kidney disease, stage 3 (moderate)

== ENCOUNTER → 2019-12-18 | Outpatient (CLI) | payer MEDICARE, OTHER | END | disposition home or self-care (01) | LOC: LAB 14:42 | DX: R97.20 Elevated prostate specific antigen [PSA] (principal) ==

== ENCOUNTER → 2020-03-07 | Outpatient (CLI) | payer MEDICARE, OTHER ==
[~2020-03-07] MED LIST changes: +XARE15TA PO
[2020-03-07 11:30] LABS: BASO % 0.1 % (0.0-1.0); EOS % 0.3 % (1.0-4.0); HEMATOCRIT 35.1 % (42.0-52.0); LYMPH # 0.7 10*3/uL (1.3-4.4); LYMPH % 10.6 % (27.0-41.0); MEAN CELL VOLUME 99.7 fl (80.0-94.0); MEAN CORPUSCULAR HGB 32.7 pg (27.0-31.0); MEAN CORPUSCULAR HGB CONC 32.8 g/dl (33.0-37.0); MEAN PLATELET VOLUME 9.3 fl (9.6-12.3); MONO # 0.2 10*3/uL (0.1-1.0); MONO % 3.3 % (3.0-9.0); NEUT # 5.9 10*3/uL (2.3-7.9); NEUT % 84.4 % (47.0-73.0); PLATELET COUNT AUTOMATED 59 10*3/uL (130-400); RED BLOOD COUNT 3.52 10*6/uL (4.50-5.90); RED CELL DISTRI WIDTH 19.7 % (0-14.5)
== END | disposition home or self-care (01) ==
LOC: LAB 11:11
PROVIDERS: Internal Medicine Hematology & Oncology
DX: C91.10 Chronic lymphocytic leukemia of B-cell type not having achieved remission (principal); N18.3 Chronic kidney disease, stage 3 (moderate); D63.1 Anemia in chronic kidney disease; E61.1 Iron deficiency; R97.20 Elevated prostate specific antigen [PSA]

== ENCOUNTER 2020-03-14 17:52 | Emergency (ER) | payer MEDICARE, OTHER ==
[~2020-03-14] VITALS: Ht 175.2 cm; Wt 77.1 kg
[~2020-03-14 17:52] MED LIST changes: -XARE15TA PO
[2020-03-14 18:06] VITALS: BP 211/50
[2020-03-14 18:39] LABS: MEAN CELL VOLUME 99.7 fl (80.0-94.0); MEAN CORPUSCULAR HGB 32.5 pg (27.0-31.0); MEAN CORPUSCULAR HGB CONC 32.6 g/dl (33.0-37.0); PLATELET COUNT AUTOMATED 69 10*3/uL (130-400); RED BLOOD COUNT 3.51 10*6/uL (4.50-5.90); RED CELL DISTRI WIDTH 19.9 % (0-14.5); WHITE BLOOD COUNT 6.6 10*3/uL (4.8-10.8)
[2020-03-14 18:47] LABS: ACT PARTIAL THROMBO TIME 27.9 SECONDS (20.0-32.1); INTERNATIONAL NORM RATIO 1.1 (2.0-3.5)
[2020-03-14 18:52] LABS: ALKALINE PHOSPHATASE 90 U/L (45-117); BUN 31 mg/dl (7-24); CHLORIDE 112 mmol/L (98-107); CREATININE 1.37 mg/dL (0.70-1.30); LIPASE 92 U/L (73-393); POTASSIUM 4.3 mmol/L (3.5-5.1); SGOT/AST 22 IU/L (3-35); SGPT/ALT 26 U/L (12-78); SODIUM 141 mmol/L (136-145); TOTAL PROTEIN 6.7 gm/dL (6.4-8.2)
[2020-03-14 18:53] LABS: TROPONIN I < 0.015 ng/ml (<0.045)
[2020-03-14 19:00] LABS: OVALOCYTES FEW; PLATELET SUFFICIENCY LOW (NORMAL); TOTAL CELLS COUNTED 100 #CELLS
[2020-03-14 19:01] LABS: BURR CELLS FEW; POLYCHROMASIA SLIGHT; SCHISTOCYTES FEW
[2020-03-14] MEDS ORDERED: XARE15TA PO (20:01)
== END 2020-03-14 20:14 | disposition home or self-care (01) ==
LOC: EDSTATUS 17:52 → ED 17:52
PROVIDERS: Nurse Practitioner Family
DX: I82.622 Acute embolism and thrombosis of deep veins of left upper extremity (principal); I25.10 Atherosclerotic heart disease of native coronary artery without angina pectoris; I10 Essential (primary) hypertension; Z79.899 Other long term (current) drug therapy

== ENCOUNTER 2020-04-20 10:26 | Emergency (ER) | payer MEDICARE, OTHER ==
[~2020-04-20] VITALS: Ht 175.2 cm; Wt 77.1 kg
[~2020-04-20 10:26] MED LIST changes: +XARE15TA PO
[2020-04-20 11:44] LABS: BASO % 0.3 % (0.0-1.0); EOS % 0.4 % (1.0-4.0); HEMATOCRIT 30.2 % (42.0-52.0); LYMPH # 0.8 10*3/uL (1.3-4.4); LYMPH % 11.4 % (27.0-41.0); MEAN CELL VOLUME 99.3 fl (80.0-94.0); MEAN CORPUSCULAR HGB 31.9 pg (27.0-31.0); MEAN CORPUSCULAR HGB CONC 32.1 g/dl (33.0-37.0); MEAN PLATELET VOLUME 10.9 fl (9.6-12.3); MONO # 0.2 10*3/uL (0.1-1.0); MONO % 2.9 % (3.0-9.0); NEUT % 83.9 % (47.0-73.0); PLATELET COUNT AUTOMATED 97 10*3/uL (130-400); RED BLOOD COUNT 3.04 10*6/uL (4.50-5.90); RED CELL DISTRI WIDTH 22.5 % (0-14.5); WHITE BLOOD COUNT 7.2 10*3/uL (4.8-10.8)
[2020-04-20 11:57] LABS: ACT PARTIAL THROMBO TIME 25.1 SECONDS (20.0-32.1); INTERNATIONAL NORM RATIO 1.1 (2.0-3.5)
[2020-04-20 12:01] LABS: ALBUMIN 3.9 gm/dl (3.1-4.5); ALKALINE PHOSPHATASE 74 U/L (45-117); BUN 36 mg/dl (7-24); CHLORIDE 112 mmol/L (98-107); POTASSIUM 4.4 mmol/L (3.5-5.1); SGOT/AST 18 IU/L (3-35); SGPT/ALT 23 U/L (12-78); SODIUM 139 mmol/L (136-145); TOTAL PROTEIN 6.5 gm/dL (6.4-8.2)
[2020-04-20 12:35] LABS: TROPONIN I < 0.015 ng/ml (<0.045)
[2020-04-20 17:40] VITALS: BP 202/78
== END 2020-04-20 19:35 | disposition short-term general hospital (02) ==
LOC: ED 10:26
PROVIDERS: Nurse Practitioner Family
DX: I70.79 Other atherosclerosis of other type of bypass graft(s) of the extremities (principal); I25.810 Atherosclerosis of coronary artery bypass graft(s) without angina pectoris; R20.0 Anesthesia of skin; R20.2 Paresthesia of skin; I10 Essential (primary) hypertension; Z96.641 Presence of right artificial hip joint; Z95.1 Presence of aortocoronary bypass graft; Z98.890 Other specified postprocedural states; Z79.899 Other long term (current) drug therapy; Z86.718 Personal history of other venous thrombosis and embolism; Z95.0 Presence of cardiac pacemaker

== ENCOUNTER 2020-04-29 16:54 | Inpatient (IN) | payer MEDICARE, OTHER ==
[2020-04-29] VITALS (13 sets, daily range): BP systolic 154–192; BP diastolic 42–86
[~2020-04-29] VITALS: Ht 175.3 cm; Wt 81.4 kg
[~2020-04-29 16:54] MED LIST changes: -AMOXICILLIN500 M2 PO; -LISINOPRIL10 M1 PO; -PREDNISONE10 M1 PO
--- NOTE | 2020-04-29 18:10 | NUR ---
PT REMAINS W/O ACUTE DISTRESS NOTED AWAITING ALL RESULTS FOR ADDITIONAL PLAN OF CARE,SAFETY PRECAUTIONS INTACT AND CALL LIGHT WITHIN REACH,NO COMPLAINTS VOICED.
--- NOTE | 2020-04-29 21:00 | NUR ---
BLOOD TITRATED TO 150ML/HR. PT TOLERATING WELL.
--- NOTE | 2020-04-29 21:35 | NUR ---
PT RESTING W/O ACUTE DISTRESS NOTED AWAITING ADMISSION,CALL LIGHT WITHIN REACH.
--- NOTE | 2020-04-29 21:38 | NUR ---
BLOOD TITRATED TO 200ML/HR. PT TOLERATING WELL.
--- NOTE | 2020-04-29 21:55 | NUR ---
PT WITH BLE PITTING EDEMA WITH RT > LFT, PULSES INTACT.
--- NOTE | 2020-04-29 22:13 | NUR ---
CONTACTED THE FLOOR TO TAKE PT UP THEY STATE THEY NEEDA FEW MINUTES.
--- NOTE | 2020-04-29 22:27 | NUR ---
PT IS RESTING IN BED WITH EYES CLOSED.
--- NOTE | 2020-04-29 22:45 | NUR ---
BLOOD TRANSFUSION COMPLETE. PT TOLERATED WELL.
--- NOTE | 2020-04-29 22:50 | NUR ---
A 89, admitted to , under the services of DORA Knight DO with a diagnosis of ACUTE BLOOD LOSS ANEMIA. Chief complaint is ABNORMAL LABS. Patient arrived via stretcher from ER. Monitor applied. Initial assessment completed. Vital signs taken and recorded. DR. CHAWLA notified of admission to the unit. Orders received. See assessment for past medical history, medications and allergies. Patient and/or family oriented to [facility]. visitation policy reviewed. Clothing/patient valuable form completed. NICK BURNS RN
--- NOTE | 2020-04-29 23:10 | NUR ---
DR. CHAWLA NOTIFIED HOME MEDICAITON LIST IS UP TO DATE
[2020-04-29] MEDS ORDERED: AMOXICILLIN500 M2 PO (23:14)
[2020-04-29] MEDS ORDERED: LISINOPRIL10 M1 PO (23:16)
[2020-04-30] VITALS (10 sets, daily range): BP systolic 126–188; BP diastolic 35–76
[2020-04-30 00:21] LABS: HEMATOCRIT 25.4 % (42.0-52.0); MEAN CELL VOLUME 99.6 fl (80.0-94.0); MEAN CORPUSCULAR HGB CONC 31.1 g/dl (33.0-37.0); MEAN PLATELET VOLUME 10.3 fl (9.6-12.3); PLATELET COUNT AUTOMATED 84 10*3/uL (130-400); RED BLOOD COUNT 2.55 10*6/uL (4.50-5.90); RED CELL DISTRI WIDTH 22.6 % (0-14.5)
[2020-04-30 00:41] LABS: BASOPHILS 1 % (0-1); TOTAL CELLS COUNTED 100 #CELLS
[2020-04-30 00:42] LABS: BURR CELLS FEW; OVALOCYTES MODERATE; PLATELET SUFFICIENCY LOW (NORMAL)
[2020-04-30 00:46] LABS: CREATININE 1.44 mg/dL (0.70-1.30); POTASSIUM 4.5 mmol/L (3.5-5.1)
[2020-04-30 06:07] LABS: HEMATOCRIT 25.1 % (42.0-52.0); MEAN CELL VOLUME 99.6 fl (80.0-94.0); MEAN CORPUSCULAR HGB 31.3 pg (27.0-31.0); MEAN CORPUSCULAR HGB CONC 31.5 g/dl (33.0-37.0); MEAN PLATELET VOLUME 9.9 fl (9.6-12.3); PLATELET COUNT AUTOMATED 86 10*3/uL (130-400); RED BLOOD COUNT 2.52 10*6/uL (4.50-5.90); RED CELL DISTRI WIDTH 23.2 % (0-14.5); WHITE BLOOD COUNT 6.1 10*3/uL (4.8-10.8)
[2020-04-30 06:21] LABS: ALBUMIN 3.3 gm/dl (3.1-4.5); CREATININE 1.47 mg/dL (0.70-1.30); POTASSIUM 4.4 mmol/L (3.5-5.1); TOTAL PROTEIN 5.9 gm/dL (6.4-8.2)
--- NOTE | 2020-04-30 06:32 | NUR ---
SECOND UNIT OF PRBC STARTED AT THIS TIME AT 60ML/HR SEE TRANSFUSION RECORD.
[2020-04-30 06:36] LABS: ACT PARTIAL THROMBO TIME 25.2 SECONDS (20.0-32.1); INTERNATIONAL NORM RATIO 1.1 (2.0-3.5)
[2020-04-30 07:04] LABS: OVALOCYTES FEW; PLATELET SUFFICIENCY LOW (NORMAL); TARGET CELLS FEW; TOTAL CELLS COUNTED 100 #CELLS
[2020-04-30 07:05] LABS: POLYCHROMASIA SLIGHT
--- NOTE | 2020-04-30 11:54 | NUR ---
Livestock Nutritionist in to talk to patient. Patient states lives at HOME with . There are NO steps in the home. Physician: DIOR BREAUX Pharmacy: [facility] Home health services: NONE Patient's level of ADLs: INDEPENDENT Patient has working utilities: YES DME: CANE Follow-up physician's appointment after d/c: WILL BE MADE BY HOSPITALIST NURSE DIRECTOR ON DISCHARGE Does patient want to access PORTAL?: NO Discharge plan PT LIVE AT [facility] WITH HIS AND IS INDEPENDENT IN HIS CARE. PT STATES HE HAS NURSES THERE IF NEEDED. PLAN IS TO RETURN ON DISCHARGE WHEN MEDICALLY STABLE. DELINES ANY OTHER HOME NEEDS AT THIS TIME WILL CONTINUE TO FOLLOW. PT STATES HE WILL HAVE A RIDE HOME ON DISCHARGE. . GUICHO LAWRENCE
[2020-04-30 12:32] LABS: HEMATOCRIT 26.5 % (42.0-52.0); MEAN CELL VOLUME 97.4 fl (80.0-94.0); MEAN CORPUSCULAR HGB 31.3 pg (27.0-31.0); MEAN CORPUSCULAR HGB CONC 32.1 g/dl (33.0-37.0); NUCLEATED RED BLOOD CELL 0.3 % (0.0-0.0); PLATELET COUNT AUTOMATED 85 10*3/uL (130-400); RED BLOOD COUNT 2.72 10*6/uL (4.50-5.90); RED CELL DISTRI WIDTH 22.7 % (0-14.5); WHITE BLOOD COUNT 6.6 10*3/uL (4.8-10.8)
[2020-04-30 13:03] LABS: TOTAL CELLS COUNTED 100 #CELLS
[2020-04-30 13:04] LABS: OVALOCYTES FEW; PLATELET SUFFICIENCY LOW (NORMAL); POLYCHROMASIA SLIGHT; TARGET CELLS FEW
[2020-04-30] MEDS ORDERED: PREDNISONE10 M1 PO (16:45)
--- NOTE | 2020-04-30 16:54 | NUR ---
SPOKE WITH PATIENT'S DAUGHTER SHAREE REGARDING PT PO PREDNISONE MEDICATION ORDER. PT DAUGHTER CONFIRMS THAT PT TAKES PO PREDNISONE 10 MG SATURDAY, SATURDAY, SATURDAY. DR KELLY NOTIFIED OF THIS. MED REC UPDATED AND MEDICATION CONTINUED PER PHYSICIAN ORDERS.
--- NOTE | 2020-04-30 20:15 | NUR ---
PATIENT ASSESSMENT COMPLETED AT THIS TIME WITHOUT INCIDENT, PATIENT DENIES ANY CHEST PAIN, SHORTNESS OF BREATH OR OTHER DISTRESS AT THIS TIME. CALL LIGHT WITHIN REACH WILL CONTINUE TO MONITOR.
--- NOTE | 2020-04-30 22:44 | NUR ---
PRN NORCO GIVEN PO AT THIS TIME FOR 8/10 PAIN IN PATIENT RIGHT HIP AND LEG. A&O X3, CALL LIGHT WITHIN REACH, WILL CONTINUE TO MONITOR.
--- NOTE | 2020-04-30 23:15 | NUR ---
PATIENT STATED THAT PAIN WAS NOW A 5/10 AFTER PRN NORCO WAS GIVEN PO. A&O X3, CALL LIGHT WITHIN REACH WILL CONTINUE TO MONITOR.
[2020-05-01] VITALS: BP 142/44
--- NOTE | 2020-05-01 05:09 | NUR ---
24 HOUR CHART CHECK COMPLETE
[2020-05-01 06:53] LABS: HEMATOCRIT 27.2 % (42.0-52.0); MEAN CELL VOLUME 94.8 fl (80.0-94.0); MEAN CORPUSCULAR HGB 31.4 pg (27.0-31.0); MEAN CORPUSCULAR HGB CONC 33.1 g/dl (33.0-37.0); MEAN PLATELET VOLUME 10.9 fl (9.6-12.3); PLATELET COUNT AUTOMATED 92 10*3/uL (130-400); RED BLOOD COUNT 2.87 10*6/uL (4.50-5.90); RED CELL DISTRI WIDTH 22.5 % (0-14.5); WHITE BLOOD COUNT 6.1 10*3/uL (4.8-10.8)
[2020-05-01 07:08] LABS: ALBUMIN 3.2 gm/dl (3.1-4.5); ALKALINE PHOSPHATASE 64 U/L (45-117); BUN 33 mg/dl (7-24); CHLORIDE 113 mmol/L (98-107); CREATININE 1.35 mg/dL (0.70-1.30); POTASSIUM 4.3 mmol/L (3.5-5.1); SGOT/AST 17 IU/L (3-35); SGPT/ALT 19 U/L (12-78); SODIUM 143 mmol/L (136-145); TOTAL PROTEIN 5.6 gm/dL (6.4-8.2)
[2020-05-01 07:44] LABS: BASOPHILS 1 % (0-1); TOTAL CELLS COUNTED 100 #CELLS
[2020-05-01 07:45] LABS: OVALOCYTES MODERATE; PLATELET SUFFICIENCY LOW (NORMAL); SCHISTOCYTES FEW
--- NOTE | 2020-05-01 07:45 | NUR ---
PATIENT RESTING IN CHAIR EATING BREAKFAST. DENIES ANY N/V/D. CO SOME PAIN IN HIS RIGHT HIP. BP ELEVATED. MANUAL BP OF 180/50. WILL GIVE BP MEDS NOW AND PAIN PILL AND RECHECK BP. PATIENT ASYMPTOMATIC. ASSESSMENT COMPLETE. RESPS EASY AND REGULAR. CALL LIGHT IN REACH. WILL MONITOR.
[2020-05-01 08:00] VITALS: BP 184/47
--- NOTE | 2020-05-01 09:00 | NUR ---
MEDICATED WITH PRN NORCO FOR CO RIGHT HIP PAIN. WILL ASSESS EFFECTIVENESS. CALL LIGHT IN REACH.
--- NOTE | 2020-05-01 09:00 | NUR ---
BP HAS CAME DOWN. RECHECK BP 154/52.
--- NOTE | 2020-05-01 10:00 | NUR ---
PER PATIENT NORCO EFFECTIVE FOR PAIN.
[2020-05-01 12:00] VITALS: BP 145/50
--- NOTE | 2020-05-01 15:30 | NUR ---
SPROKE TO FAMILY AND UPDATED ON POC.
[2020-05-01 16:00] VITALS: BP 161/43
[2020-05-01 20:00] VITALS: BP 152/42
--- NOTE | 2020-05-01 20:40 | NUR ---
SPOKE TO REGARDING OBERVATION STATUS. AWARE THAT OBSERVATION TIME (48 HRS) WILL TONIGHT (05/01/20) AT 2150. INSTRUCTED TO ADMIT PATIENT INPATIENT STATUS.
--- NOTE | 2020-05-01 21:35 | NUR ---
PT REQUESTED AND RECEIVED PO NORCO PER PRN ORDER FOR C/O PAIN IN R LEG RATED 7/10. WILL MONITOR EFFECTIVENESS. CALL LIGHT IN REACH.
--- NOTE | 2020-05-01 22:21 | NUR ---
EARLIER NORCO EFFECTIVE PER PT. WILL CONTINUE TO MONITOR. CALL LIGHT IN REACH.
[2020-05-02] VITALS: BP 151/46
--- NOTE | 2020-05-02 02:31 | NUR ---
PT ASLEEP IN BED. NO S/S OF DISTRESS NOTED. WILL MONITOR. CALL LIGHT IN REACH.
--- NOTE | 2020-05-02 03:04 | NUR ---
PO NORCO GIVEN PER REQUEST FOR C/O R LEG PAIN RATED 5/10. WILL MONITOR EFFECTIVENESS. ICE WATER ALSO PROVIDED AT THIS TIME. PT DENIES ANY OTHER NEEDS. CALL LIGHT LEFT IN REACH.
--- NOTE | 2020-05-02 04:00 | NUR ---
EARLIER MEDS APPEAR EFFECTIVE. PT ASLEEP IN BED. RESPIRATIONS EASY. NO S/S OF DISTRESS NOTED. WILL MONITOR. CALL LIGHT IN REACH.
[2020-05-02 06:48] LABS: HEMATOCRIT 27.2 % (42.0-52.0); MEAN CELL VOLUME 97.8 fl (80.0-94.0); MEAN CORPUSCULAR HGB 30.9 pg (27.0-31.0); MEAN CORPUSCULAR HGB CONC 31.6 g/dl (33.0-37.0); MEAN PLATELET VOLUME 9.9 fl (9.6-12.3); PLATELET COUNT AUTOMATED 82 10*3/uL (130-400); RED BLOOD COUNT 2.78 10*6/uL (4.50-5.90); RED CELL DISTRI WIDTH 21.7 % (0-14.5); WHITE BLOOD COUNT 5.6 10*3/uL (4.8-10.8)
[2020-05-02 07:23] LABS: OVALOCYTES FEW; PLATELET SUFFICIENCY LOW (NORMAL); POLYCHROMASIA SLIGHT; POTASSIUM 4.4 mmol/L (3.5-5.1); TOTAL CELLS COUNTED 100 #CELLS
--- NOTE | 2020-05-02 07:41 | NUR ---
PATIENT RESTING IN BED. CO A LITTLE BIT OF PAIN IN HIS RIGHT LEG BUT DENIES THE NEED FOR ANYTHING AT THIS TIME. ASSESSMENT COMPLETE. RESPS EASY AND REGULAR. CALL LIGHT IN REACH.
[2020-05-02 08:00] VITALS: BP 187/45
[2020-05-02 08:23] LABS: CREATININE 1.42 mg/dL (0.70-1.30); TOTAL PROTEIN 5.3 gm/dL (6.4-8.2)
--- NOTE | 2020-05-02 08:38 | NUR ---
BP MEDS GIVEN AT THIS TIME DUE BP BEING ELEVATED. WILL RECHECK.
--- NOTE | 2020-05-02 09:07 | NUR ---
AUTOMOTIVE PARTS MANAGER IN TO SPEAK WITH THE PATIENT. PATIENT STATED HE LIVES AT [facility] WITH HIS . PATIENT STATED HE IS INDEPENDENT WITH HIS CARE AND DOES STILL DRIVE. AUTOMOTIVE PARTS MANAGER SPOKE TO THE PATIENT ABOUT HOME HEALTH SERVICES, PATIENT STATED "I DON'T THINK I HAVE ANY NEEDS AT THIS TIME." AUTOMOTIVE PARTS MANAGER WILL CONTINUE TO FOLLOW.
--- NOTE | 2020-05-02 09:41 | NUR ---
COVID TESTING IS NOT REQUIRED FOR RETURN TO [facility].
--- NOTE | 2020-05-02 09:54 | NUR ---
24 HR chart check completed.
--- NOTE | 2020-05-02 10:00 | NUR ---
BP 154/48.
[2020-05-02] MEDS ORDERED: DOXYCYCLINE100 M3 PO (12:47)
--- NOTE | 2020-05-02 14:14 | NUR ---
Discharge instructions reviewed with patient/family. Patient receptive and verbalizes understanding. Follow-up care arranged. Written instructions given to patient/family. IV REMOVED. PATIENT LEFT IN CARE OF HIS DAUGHTER. JAZ GONSALEZ
== END 2020-05-02 14:14 | disposition home or self-care (01) | DRG 920 ==
LOC: ED 16:54 → 5E 20:26 → EDHOLD 20:26 → 5E 21:43
PROVIDERS: Hospitalist; Internal Medicine; Student in an Organized Health Care Education/Training Program; ADMIT Emergency Medicine
PROC: 30233N1 Transfusion of Nonautologous Red Blood Cells into Peripheral Vein, Percutaneous Approach (ICD-10-PCS; principal; 2020-04-29)
DX: L76.32 Postprocedural hematoma of skin and subcutaneous tissue following other procedure (principal); L03.115 Cellulitis of right lower limb; D62 Acute posthemorrhagic anemia; I50.32 Chronic diastolic (congestive) heart failure; I13.0 Hypertensive heart and chronic kidney disease with heart failure and stage 1 through stage 4 chronic kidney disease, or unspecified chronic kidney disease; E11.22 Type 2 diabetes mellitus with diabetic chronic kidney disease; E11.51 Type 2 diabetes mellitus with diabetic peripheral angiopathy without gangrene; E78.2 Mixed hyperlipidemia; E66.3 Overweight; Y83.8 Other surgical procedures as the cause of abnormal reaction of the patient, or of later complication, without mention of misadventure at the time of the procedure; Y92.89 Other specified places as the place of occurrence of the external cause; D69.6 Thrombocytopenia, unspecified; D75.89 Other specified diseases of blood and blood-forming organs; N18.3 Chronic kidney disease, stage 3 (moderate); C61 Malignant neoplasm of prostate; Z95.1 Presence of aortocoronary bypass graft; Z79.02 Long term (current) use of antithrombotics/antiplatelets; Z86.718 Personal history of other venous thrombosis and embolism; Z96.641 Presence of right artificial hip joint; Z95.0 Presence of cardiac pacemaker; Z79.899 Other long term (current) drug therapy; Z79.01 Long term (current) use of anticoagulants; Z68.26 Body mass index [BMI] 26.0-26.9, adult

== ENCOUNTER → 2020-04-29 | Outpatient (CLI) | payer MEDICARE, OTHER ==
[~2020-04-29] MED LIST changes: +AMOXICILLIN500 M2 PO; +LISINOPRIL10 M1 PO; +PREDNISONE10 M1 PO
[2020-04-29 09:53] LABS: HEMATOCRIT 24.6 % (42.0-52.0); MEAN CELL VOLUME 102.1 fl (80.0-94.0); MEAN CORPUSCULAR HGB 31.5 pg (27.0-31.0); MEAN CORPUSCULAR HGB CONC 30.9 g/dl (33.0-37.0); MEAN PLATELET VOLUME 10.5 fl (9.6-12.3); NUCLEATED RED BLOOD CELL 0.3 % (0.0-0.0); PLATELET COUNT AUTOMATED 104 10*3/uL (130-400); RED BLOOD COUNT 2.41 10*6/uL (4.50-5.90); RED CELL DISTRI WIDTH 23.6 % (0-14.5); WHITE BLOOD COUNT 8.9 10*3/uL (4.8-10.8)
[2020-04-29 10:11] LABS: OVALOCYTES MODERATE; PLATELET SUFFICIENCY LOW (NORMAL); TOTAL CELLS COUNTED 100 #CELLS
== END | disposition home or self-care (01) ==
LOC: LAB 09:35
PROVIDERS: Internal Medicine Hematology & Oncology
DX: Z51.11 Encounter for antineoplastic chemotherapy (principal); C91.01 Acute lymphoblastic leukemia, in remission; C83.00 Small cell B-cell lymphoma, unspecified site; N18.3 Chronic kidney disease, stage 3 (moderate); D63.1 Anemia in chronic kidney disease; E61.1 Iron deficiency; R97.20 Elevated prostate specific antigen [PSA]

== ENCOUNTER → 2020-05-17 | Outpatient (CLI) | payer MEDICARE, OTHER ==
[~2020-05-17] MED LIST changes: +AMOXICILLIN500 M2 PO; +DOXYCYCLINE100 M3 PO; +LISINOPRIL10 M1 PO; +PREDNISONE10 M1 PO
== END | disposition home or self-care (01) ==
LOC: US 10:24
DX: I82.622 Acute embolism and thrombosis of deep veins of left upper extremity (principal); I73.9 Peripheral vascular disease, unspecified

== ENCOUNTER → 2020-07-13 | Outpatient (CLI) | payer MEDICARE, OTHER ==
[2020-07-13 15:55] LABS: HEMATOCRIT 33.9 % (42.0-52.0); MEAN CELL VOLUME 95.5 fl (80.0-94.0); MEAN CORPUSCULAR HGB 30.1 pg (27.0-31.0); MEAN CORPUSCULAR HGB CONC 31.6 g/dl (33.0-37.0); MEAN PLATELET VOLUME 11.1 fl (9.6-12.3); NUCLEATED RED BLOOD CELL 0.3 % (0.0-0.0); PLATELET COUNT AUTOMATED 105 10*3/uL (130-400); RED BLOOD COUNT 3.55 10*6/uL (4.50-5.90); RED CELL DISTRI WIDTH 21.3 % (0-14.5); WHITE BLOOD COUNT 11.1 10*3/uL (4.8-10.8)
[2020-07-13 17:08] LABS: TOTAL CELLS COUNTED 100 #CELLS
[2020-07-13 17:09] LABS: OVALOCYTES FEW; PLATELET SUFFICIENCY LOW (NORMAL)
== END | disposition home or self-care (01) ==
LOC: LAB 13:53
PROVIDERS: ATTEND Internal Medicine Hematology & Oncology
DX: Z51.11 Encounter for antineoplastic chemotherapy (principal); C91.10 Chronic lymphocytic leukemia of B-cell type not having achieved remission; C83.00 Small cell B-cell lymphoma, unspecified site; N18.30 Chronic kidney disease, stage 3 unspecified; D63.1 Anemia in chronic kidney disease; E61.1 Iron deficiency; R97.20 Elevated prostate specific antigen [PSA]

== ENCOUNTER → 2020-09-07 | Outpatient (CLI) | payer MEDICARE, OTHER | END | disposition home or self-care (01) | LOC: CARD 10:30 → US 11:30 | PROVIDERS: ATTEND Internal Medicine Cardiovascular Disease | DX: I08.2 Rheumatic disorders of both aortic and tricuspid valves (principal); I65.23 Occlusion and stenosis of bilateral carotid arteries; Z95.0 Presence of cardiac pacemaker; I27.20 Pulmonary hypertension, unspecified ==

== ENCOUNTER → 2020-10-31 | Outpatient (CLI) | payer MEDICARE, OTHER | END | disposition home or self-care (01) | LOC: US 00:33 | PROVIDERS: ATTEND Internal Medicine Cardiovascular Disease | DX: N28.1 Cyst of kidney, acquired (principal); I77.1 Stricture of artery; N28.9 Disorder of kidney and ureter, unspecified; I10 Essential (primary) hypertension ==

== ENCOUNTER 2021-04-21 09:25 | Emergency (ER) | payer MEDICARE, OTHER ==
[~2021-04-21] VITALS: Ht 175.2 cm; Wt 83.0 kg
[2021-04-21 09:37] VITALS: BP 152/40
[2021-04-21 10:35] LABS: BASO % 0.2 % (0.0-1.0); EOS # 0.1 10*3/uL (0.0-0.4); EOS % 0.9 % (1.0-4.0); HEMATOCRIT 23.1 % (42.0-52.0); LYMPH # 0.6 10*3/uL (1.3-4.4); LYMPH % 9.5 % (27.0-41.0); MEAN CELL VOLUME 98.3 fl (80.0-94.0); MEAN CORPUSCULAR HGB 31.9 pg (27.0-31.0); MEAN CORPUSCULAR HGB CONC 32.5 g/dl (33.0-37.0); MEAN PLATELET VOLUME 11.7 fl (9.6-12.3); MONO # 0.4 10*3/uL (0.1-1.0); MONO % 6.8 % (3.0-9.0); NEUT # 5.3 10*3/uL (2.3-7.9); NEUT % 81.7 % (47.0-73.0); PLATELET COUNT AUTOMATED 61 10*3/uL (130-400); RED BLOOD COUNT 2.35 10*6/uL (4.50-5.90); RED CELL DISTRI WIDTH 22.2 % (0-14.5); WHITE BLOOD COUNT 6.5 10*3/uL (4.8-10.8)
[2021-04-21 10:49] LABS: ALBUMIN 3.4 gm/dl (3.1-4.5); CREATININE 1.47 mg/dL (0.70-1.30); POTASSIUM 4.3 mmol/L (3.5-5.1); TOTAL PROTEIN 5.5 gm/dL (6.4-8.2); URIC ACID 7.3 mg/dL (3.5-7.2)
[2021-04-21] MEDS ORDERED: PREDNISONE50 MG PO ×2 (13:14)
[2021-04-21] MEDS ORDERED: ULTRAM50 MG PO (13:28)
[2021-05-02] MEDS ORDERED: AMOXICILLIN500 M2 PO (09:00)
[2021-05-02] MEDS ORDERED: NORVASC5 MG PO (09:02)
[2021-05-02] MEDS ORDERED: EFFEXOR XR37.5 MG PO (09:02)
[2021-05-02] MEDS ORDERED: ALLOPURINOL100 MG PO (09:02)
[2021-05-02] MEDS ORDERED: Amitriptyline H10 MG PO (09:03)
== END 2021-04-21 13:32 | disposition home or self-care (01) ==
LOC: ED 09:25
PROVIDERS: Internal Medicine
DX: M10.022 Idiopathic gout, left elbow (principal); Z79.2 Long term (current) use of antibiotics; Z79.899 Other long term (current) drug therapy; Z96.641 Presence of right artificial hip joint; Z95.0 Presence of cardiac pacemaker; Z98.890 Other specified postprocedural states

== ENCOUNTER → 2021-05-02 | Outpatient (CLI) | payer MEDICARE, OTHER ==
[~2021-05-02] MED LIST changes: +ALLOPURINOL100 MG PO; +Amitriptyline H10 MG PO; +EFFEXOR XR37.5 MG PO; +HYDROCODONE-AC1 EAC1 PO; +NORVASC5 MG PO; +PREDNISONE50 MG PO
[2021-05-02 09:11] LABS: HEMATOCRIT 28.4 % (42.0-52.0)
== END | disposition home or self-care (01) ==
LOC: TRNFUSION 01:40
PROVIDERS: ATTEND Physician Assistant
DX: I10 Essential (primary) hypertension (principal); D50.8 Other iron deficiency anemias

== ENCOUNTER → 2021-05-12 | Outpatient (CLI) | payer MEDICARE, OTHER ==
[2021-05-12 08:30] VITALS: BP 136/49
[2021-05-12 09:09] VITALS: BP 130/48
[2021-05-12 09:44] VITALS: BP 131/39
[2021-05-12 10:44] VITALS: BP 118/49
[2021-05-12 11:40] VITALS: BP 109/49
== END | disposition home or self-care (01) ==
LOC: TRNFUSION 01:22
PROVIDERS: ATTEND Physician Assistant
DX: D50.8 Other iron deficiency anemias (principal)

== ENCOUNTER 2021-05-26 11:20 | Emergency (ER) | payer MEDICARE, OTHER ==
[~2021-05-26] VITALS: Ht 175.2 cm; Wt 77.1 kg
[~2021-05-26 11:20] MED LIST changes: -HYDROCODONE-AC1 EAC1 PO
[2021-05-26 11:29] VITALS: BP 155/36
[2021-05-26 12:08] LABS: EOS # 0.1 10*3/uL (0.0-0.4); EOS % 1.5 % (1.0-4.0); HEMATOCRIT 26.9 % (42.0-52.0); LYMPH # 0.6 10*3/uL (1.3-4.4); LYMPH % 13.8 % (27.0-41.0); MEAN CELL VOLUME 99.3 fl (80.0-94.0); MEAN CORPUSCULAR HGB 31.4 pg (27.0-31.0); MEAN CORPUSCULAR HGB CONC 31.6 g/dl (33.0-37.0); MONO # 0.4 10*3/uL (0.1-1.0); MONO % 8.1 % (3.0-9.0); NEUT # 3.5 10*3/uL (2.3-7.9); NEUT % 75.9 % (47.0-73.0); PLATELET COUNT AUTOMATED 55 10*3/uL (130-400); RED BLOOD COUNT 2.71 10*6/uL (4.50-5.90); RED CELL DISTRI WIDTH 22.4 % (0-14.5); WHITE BLOOD COUNT 4.6 10*3/uL (4.8-10.8)
[2021-05-26 12:20] LABS: ALBUMIN 3.6 gm/dl (3.1-4.5); ALKALINE PHOSPHATASE 93 U/L (45-117); BUN 30 mg/dl (7-24); CHLORIDE 115 mmol/L (98-107); CREATININE 1.26 mg/dL (0.70-1.30); POTASSIUM 4.1 mmol/L (3.5-5.1); SGOT/AST 21 IU/L (3-35); SGPT/ALT 21 U/L (12-78); SODIUM 142 mmol/L (136-145); TOTAL PROTEIN 5.7 gm/dL (6.4-8.2); URIC ACID 7.3 mg/dL (3.5-7.2)
[2021-05-26] MEDS ORDERED: PREDNISONE50 MG PO (14:15)
[2021-05-26] MEDS ORDERED: HYDROCODONE-AC1 EAC1 PO (14:16)
== END 2021-05-26 14:18 | disposition home or self-care (01) ==
LOC: ED 11:20
PROVIDERS: Emergency Medicine
DX: M10.9 Gout, unspecified (principal); M25.532 Pain in left wrist; Z79.899 Other long term (current) drug therapy

== ENCOUNTER → 2021-09-06 | Outpatient (CLI) | payer MEDICARE, OTHER ==
[~2021-09-06] MED LIST changes: +HYDROCODONE-AC1 EAC1 PO
== END | disposition home or self-care (01) ==
LOC: US 09:30 → CARD 10:30
PROVIDERS: ATTEND Internal Medicine Cardiovascular Disease
DX: I08.8 Other rheumatic multiple valve diseases (principal); I65.23 Occlusion and stenosis of bilateral carotid arteries; R09.89 Other specified symptoms and signs involving the circulatory and respiratory systems; Z95.2 Presence of prosthetic heart valve

== ENCOUNTER → 2021-09-26 | Outpatient (CLI) | payer MEDICARE, OTHER | END | disposition home or self-care (01) | LOC: RAD 11:39 | PROVIDERS: ATTEND Physician Assistant | DX: J90 Pleural effusion, not elsewhere classified (principal) ==

== ENCOUNTER → 2021-10-09 | Outpatient (CLI) | payer MEDICARE, OTHER | END | disposition home or self-care (01) | LOC: RAD 15:50 | PROVIDERS: ATTEND Physician Assistant | DX: J90 Pleural effusion, not elsewhere classified (principal); R53.82 Chronic fatigue, unspecified; I10 Essential (primary) hypertension; C91.10 Chronic lymphocytic leukemia of B-cell type not having achieved remission; Z95.3 Presence of xenogenic heart valve ==

== ENCOUNTER → 2021-10-20 | Outpatient (CLI) | payer MEDICARE, OTHER | END | disposition home or self-care (01) | LOC: US 09:18 | PROVIDERS: ATTEND Physician Assistant | DX: K76.0 Fatty (change of) liver, not elsewhere classified (principal); R16.1 Splenomegaly, not elsewhere classified; K80.20 Calculus of gallbladder without cholecystitis without obstruction; R60.9 Edema, unspecified ==